=== PATIENT | female | born 1945 | race Caucasian/White ===

== ENCOUNTER 2017-05-09 09:28 | Outpatient (CLI) | payer MEDICARE ==
[2017-05-09 13:10] LABS: BASOPHILS % (AUTO) 0.8 %; EOSINOPHILS # (AUTO) 0.1 10^3/uL (0.0-0.7); HGB - HEMOGLOBIN 13.3 g/dL (12.0-16.0); LYMPHOCYTES # (AUTO) 1.1 10^3/uL (1.5-3.5); MONOCYTES # (AUTO) 0.4 10^3/uL (0.0-1.0); NEUTROPHILS # (AUTO) 3.5 10^3/uL (1.5-6.6); NUCLEATED RED BLOOD CELLS AUTO 0.1 /100WBC; RED CELL DISTRIBUTION WIDTH 12.8 % (12.0-15.0)
[2017-05-09 13:12] LABS: EOSINOPHILS % (AUTO) 1.6 %; HCT - HEMATOCRIT 40.5 % (37.0-47.0); MEAN CORPUSCULAR HEMOGLOBIN 29.2 pg (27.0-31.0); MEAN CORPUSCULAR HGB CONC 32.9 g/dL (32.0-36.0); MEAN CORPUSCULAR VOLUME 88.7 fL (81.0-99.0); MEAN PLATELET VOLUME 8.3 fL (7.9-10.8); MONOCYTES % (AUTO) 8.2 %; NEUTROPHILS % (AUTO) 68.4 %; RED BLOOD COUNT 4.57 10^6/uL (4.20-5.40); UNCORRECTED WHITE BLOOD COUNT 5.2 x10^3/uL; WHITE BLOOD COUNT 5.2 x10^3/uL (4.8-10.8)
[2017-05-09 13:41] LABS: BILIRUBIN,TOTAL 0.4 mg/dL (0.2-1.0); BUN - BLOOD UREA NITROGEN 13 mg/dL (6-20); CALCIUM 9.2 mg/dL (8.5-10.3); CARBON DIOXIDE - CO2 30 mmol/L (21-32); CHLORIDE 103 mmol/L (101-111); CHOLESTEROL 194 mg/dL; CREATININE 0.8 mg/dL (0.4-1.0); GFR - MDRD 70 (>89); GLUCOSE 101 mg/dL (70-100); HDL CHOLESTEROL 49 mg/dL; LDL/HDL RATIO 2.4 (<4.4); POTASSIUM 4.2 mmol/L (3.5-5.0); SODIUM 138 mmol/L (135-145); TOTAL PROTEIN 7.1 g/dL (6.7-8.2); TRIGLYCERIDES 143 mg/dL; VLDL CHOLESTEROL 29 mg/dL
== END 2017-05-09 09:29 | disposition home or self-care (01) ==
LOC: LAB.N 09:28
PROVIDERS: ATTEND Nurse Practitioner Gerontology
DX: I10 Essential (primary) hypertension (principal)
CPT/HCPCS: 36415; 80053; 80061; 85025

== ENCOUNTER 2018-03-27 13:28 | Outpatient (CLI) | payer MEDICARE ==
--- NOTE | 2018-03-27 17:24 | XRAY Report ---
THREE VIEW RIGHT KNEE: 03/27/2018 CLINICAL INDICATION: Pain. FINDINGS: AP, lateral, sunrise views of the right knee demonstrate mild osteoarthritis. There is no evidence of fracture. No effusion is seen. IMPRESSION: MILD OSTEOARTHRITIS. TD: 03/27/2018 15:46
== END 2018-03-27 13:29 | disposition home or self-care (01) ==
LOC: DI.N 13:28
PROVIDERS: ATTEND Family Medicine
DX: M17.11 Unilateral primary osteoarthritis, right knee (principal)

== ENCOUNTER 2018-04-15 08:47 | Outpatient (CLI) | payer MEDICARE ==
[2018-04-15 12:46] LABS: CALCIUM 9.5 mg/dL (8.5-10.3); CREATININE 0.8 mg/dL (0.4-1.0)
== END 2018-04-15 08:48 | disposition home or self-care (01) ==
LOC: LAB.N 08:47
PROVIDERS: ATTEND Family Medicine
DX: I10 Essential (primary) hypertension (principal)
CPT/HCPCS: 36415; 80048

== ENCOUNTER 2019-05-11 08:00 | Outpatient (CLI) | payer MEDICARE ==
[2019-05-11 19:08] LABS: CALCIUM 9.8 mg/dL (8.5-10.3); CREATININE 0.9 mg/dL (0.4-1.0)
== END 2019-05-11 23:59 | disposition home or self-care (01) ==
LOC: LAB.N 08:00
PROVIDERS: ATTEND Nurse Practitioner Gerontology
DX: I10 Essential (primary) hypertension (principal)
CPT/HCPCS: 36415; 80048

== ENCOUNTER 2020-11-15 08:00 | Outpatient (CLI) | payer MEDICARE ==
[2020-11-15 19:03] LABS: BASOPHILS % (AUTO) 0.7 %; EOSINOPHILS # (AUTO) 0.1 10^3/uL (0.0-0.7); HGB - HEMOGLOBIN 12.2 g/dL (12.0-16.0); LYMPHOCYTES # (AUTO) 1.5 10^3/uL (1.5-3.5); LYMPHOCYTES % (AUTO) 25.5 %; MEAN CORPUSCULAR HEMOGLOBIN 28.2 pg (27.0-31.0); MEAN CORPUSCULAR HGB CONC 29.5 g/dL (32.0-36.0); MEAN CORPUSCULAR VOLUME 95.8 fL (81.0-99.0); MEAN PLATELET VOLUME 10.4 fL (7.9-10.8); MONOCYTES # (AUTO) 0.5 10^3/uL (0.0-1.0); MONOCYTES % (AUTO) 7.9 %; NEUTROPHILS # (AUTO) 3.8 10^3/uL (1.5-6.6); NEUTROPHILS % (AUTO) 63.6 %; PLT - PLATELET COUNT 361 10^3/uL (130-450); RED BLOOD COUNT 4.32 10^6/uL (4.20-5.40); RED CELL DISTRIBUTION WIDTH 12.4 % (12.0-15.0)
[2020-11-15 19:18] LABS: ALBUMIN 3.8 g/dL (3.2-5.5); ALBUMIN/GLOBULIN RATIO 1.1 (1.0-2.2); BILIRUBIN,TOTAL 0.5 mg/dL (0.2-1.0); CALCIUM 9.5 mg/dL (8.5-10.3); TOTAL PROTEIN 7.3 g/dL (6.7-8.2)
== END 2020-11-15 23:59 | disposition home or self-care (01) ==
LOC: LAB.WCP 08:00
PROVIDERS: ATTEND Family Medicine
DX: I10 Essential (primary) hypertension (principal)
CPT/HCPCS: 36415; 80053; 85025

== ENCOUNTER 2021-10-30 08:00 | Outpatient (CLI) | payer MEDICARE ==
[2021-10-30 20:11] LABS: BASOPHILS % (AUTO) 0.2 %; EOSINOPHILS % (AUTO) 0.7 %; HCT - HEMATOCRIT 41.2 % (37.0-47.0); HGB - HEMOGLOBIN 13.2 g/dL (12.0-16.0); LYMPHOCYTES # (AUTO) 1.3 10^3/uL (1.5-3.5); LYMPHOCYTES % (AUTO) 31.1 %; MEAN CORPUSCULAR HEMOGLOBIN 28.8 pg (27.0-31.0); MEAN PLATELET VOLUME 10.1 fL (7.9-10.8); MONOCYTES # (AUTO) 0.5 10^3/uL (0.0-1.0); MONOCYTES % (AUTO) 12.5 %; NEUTROPHILS # (AUTO) 2.3 10^3/uL (1.5-6.6); NEUTROPHILS % (AUTO) 55.3 %; PLT - PLATELET COUNT 278 10^3/uL (130-450); RED BLOOD COUNT 4.58 10^6/uL (4.20-5.40); WHITE BLOOD COUNT 4.2 x10^3/uL (4.8-10.8)
[2021-10-30 20:28] LABS: ALBUMIN/GLOBULIN RATIO 1.3 (1.0-2.2); ALKALINE PHOSPHATASE 86 IU/L (42-121); ALT ALANINE AMINOTRANSFERASE 20 IU/L (10-60); AST ASPARTATE AMINOTRANSFERASE 29 IU/L (10-42); BILIRUBIN,TOTAL 0.3 mg/dL (0.2-1.0); BUN - BLOOD UREA NITROGEN 33 mg/dL (6-20); CALCIUM 9.9 mg/dL (8.5-10.3); CARBON DIOXIDE - CO2 30 mmol/L (21-32); CHLORIDE 94 mmol/L (101-111); CHOL/HDL RATIO 3.8 (<4.4); CHOLESTEROL 167 mg/dL; CREATININE 1.3 mg/dL (0.4-1.0); GFR - MDRD 40 (>89); GLUCOSE 115 mg/dL (70-100); HDL CHOLESTEROL 44 mg/dL; LDL CHOLESTEROL,CALCULATED 102 mg/dL; LDL/HDL RATIO 2.3 (<4.4); POTASSIUM 3.6 mmol/L (3.5-5.0); SODIUM 136 mmol/L (135-145); TOTAL PROTEIN 7.1 g/dL (6.7-8.2); TRIGLYCERIDES 106 mg/dL; VLDL CHOLESTEROL 21 mg/dL
[2021-10-30 20:41] LABS: ESTIMATED AVERAGE GLUCOSE 117 mg/dL (70-100); HEMOGLOBIN A1c% 5.7 % (4.27-6.07)
[2021-10-30 20:54] LABS: THYROID STIMULATING HORMONE 3.46 uIU/mL (0.34-5.60)
[2021-10-30 20:55] LABS: FREE T4 (FREE THYROXINE) 1.24 ng/dL (0.58-1.64)
== END 2021-10-30 23:59 | disposition home or self-care (01) ==
LOC: LAB.WCP 08:00
PROVIDERS: ATTEND Nurse Practitioner
DX: R53.83 Other fatigue (principal); Z13.220 Encounter for screening for lipoid disorders; E66.01 Morbid (severe) obesity due to excess calories
CPT/HCPCS: 36415; 80053; 80061; 82043; 82570; 83036; 83721; 84439; 84443; 85025

== ENCOUNTER 2021-11-02 11:00 | Outpatient (CLI) | payer MEDICARE ==
[2021-11-02 19:04] LABS: MICROALBUM/CREATININE RATIO,UR 6.6 ug/mg (<30.0); MICROALBUMIN,URINE 0.4 mg/dL (0-300.0)
== END 2021-11-02 23:59 | disposition home or self-care (01) ==
LOC: LAB.N 11:00
PROVIDERS: ATTEND Nurse Practitioner
DX: E66.01 Morbid (severe) obesity due to excess calories (principal)
CPT/HCPCS: 82043; 82570

== ENCOUNTER 2022-10-09 14:46 | Outpatient (CLI) | payer MEDICARE ==
--- NOTE | 2022-10-09 14:59 | XRAY Report ---
PROCEDURE: Knee 4 View BILAT INDICATIONS: BILAT KNEE PAIN TECHNIQUE: 4 views of the bilateral knee(s) were acquired. COMPARISON: None. FINDINGS: Bones: No fractures or dislocations. No suspicious bony lesions. Moderate periareolar articular os teophyte formation bilaterally. Severe right knee lateral compartment narrowing. Mild left knee later al compartment narrowing. Soft tissues: No joint effusion. No suspicious soft tissue calcifications. IMPRESSION: Osteoarthritis with knee joint narrowing. No acute fracture. No osseous lesion. If sympt oms and/or clinical suspicion for pathology continue, further assessment with repeat plain films, or advanced imaging (e.g., CT, MRI, or bone scan) is recommended for further assessment. Reviewed by: Danya Phan MD on 10/09/2022 1:58 PM [facility] [[email or web address]] Approved by: Danya Phan MD on 10/09/2022 1:58 PM [facility] [[email or web address]] Station ID: [id number]
== END 2022-10-09 14:47 | disposition home or self-care (01) ==
LOC: DI.WOS 14:46
PROVIDERS: ATTEND Physician Assistant Surgical
DX: M17.0 Bilateral primary osteoarthritis of knee (principal)

== ENCOUNTER 2022-12-22 12:16 | Outpatient (CLI) | payer MEDICARE ==
[2022-12-22 18:56] LABS: BASOPHILS % (AUTO) 0.5 %; EOSINOPHILS # (AUTO) 0.2 10^3/uL (0.0-0.7); EOSINOPHILS % (AUTO) 2.3 %; HCT - HEMATOCRIT 40.2 % (37.0-47.0); HGB - HEMOGLOBIN 12.1 g/dL (12.0-16.0); LYMPHOCYTES # (AUTO) 2.3 10^3/uL (1.5-3.5); LYMPHOCYTES % (AUTO) 28.8 %; MEAN CORPUSCULAR HEMOGLOBIN 28.8 pg (27.0-31.0); MEAN CORPUSCULAR HGB CONC 30.1 g/dL (32.0-36.0); MEAN CORPUSCULAR VOLUME 95.7 fL (81.0-99.0); MEAN PLATELET VOLUME 10.6 fL (7.9-10.8); MONOCYTES # (AUTO) 0.5 10^3/uL (0.0-1.0); MONOCYTES % (AUTO) 6.5 %; NEUTROPHILS # (AUTO) 4.9 10^3/uL (1.5-6.6); NEUTROPHILS % (AUTO) 61.8 %; PLT - PLATELET COUNT 315 10^3/uL (130-450); RED CELL DISTRIBUTION WIDTH 12.8 % (12.0-15.0)
[2022-12-22 19:16] LABS: ALBUMIN 4.1 g/dL (3.2-5.5); ALBUMIN/GLOBULIN RATIO 1.1 (1.0-2.2); ALKALINE PHOSPHATASE 79 IU/L (42-121); ALT ALANINE AMINOTRANSFERASE 12 IU/L (10-60); AST ASPARTATE AMINOTRANSFERASE 18 IU/L (10-42); BILIRUBIN,TOTAL 0.8 mg/dL (0.2-1.0); BUN - BLOOD UREA NITROGEN 37 mg/dL (6-20); CALCIUM 10.1 mg/dL (8.5-10.3); CARBON DIOXIDE - CO2 24 mmol/L (21-32); CHLORIDE 97 mmol/L (101-111); CHOL/HDL RATIO 3.2 (<4.4); CHOLESTEROL 171 mg/dL; CREATININE 1.3 mg/dL (0.4-1.0); GFR - MDRD 40 (>89); GLUCOSE 102 mg/dL (70-100); HDL CHOLESTEROL 54 mg/dL; LDL CHOLESTEROL,CALCULATED 99 mg/dL; LDL/HDL RATIO 1.8 (<4.4); POTASSIUM 3.7 mmol/L (3.5-5.0); SODIUM 135 mmol/L (135-145); TRIGLYCERIDES 92 mg/dL; VLDL CHOLESTEROL 18 mg/dL
[2022-12-22 19:27] LABS: THYROID STIMULATING HORMONE 2.68 uIU/mL (0.34-5.60)
[2022-12-22 21:39] LABS: ESTIMATED AVERAGE GLUCOSE 117 mg/dL (70-100); HEMOGLOBIN A1c% 5.7 % (4.27-6.07)
== END 2022-12-22 12:17 | disposition home or self-care (01) ==
LOC: LAB.N 12:16
PROVIDERS: ATTEND Physician Assistant
DX: I12.9 Hypertensive chronic kidney disease with stage 1 through stage 4 chronic kidney disease, or unspecified chronic kidney disease (principal); N18.32 Chronic kidney disease, stage 3b; R73.03 Prediabetes; R53.83 Other fatigue
CPT/HCPCS: 36415; 80053; 80061; 83036; 83721; 84443; 85025

== ENCOUNTER 2023-10-23 08:30 | Outpatient (CLI) | payer MEDICARE ==
[2023-10-23 11:59] LABS: BILIRUBIN,URINE NEGATIVE (NEGATIVE); GLUCOSE, URINE (UA) NEGATIVE (NEGATIVE); KETONES,URINE (UA) NEGATIVE (NEGATIVE); LEUKOCYTE ESTERASE, URINE TRACE (NEGATIVE); NITRITE,URINE POSITIVE (NEGATIVE); OCCULT BLOOD,URINE NEGATIVE (NEGATIVE); PROTEIN,URINE NEGATIVE (NEGATIVE); UROBILINOGEN,URINE 0.2 (NORMAL) E.U./dL (NORMAL)
[2023-10-23 12:09] LABS: BACTERIA,URINE Moderate /HPF (None Seen); CLARITY,URINE HAZY (CLEAR); RBC,URINE None Seen /HPF (0-5); SQUAMOUS EPITHELIAL CELL,UR MOD Squamous (<= Few)
== END 2023-10-23 08:45 | disposition home or self-care (01) ==
LOC: LAB.N 08:30
PROVIDERS: ATTEND Nurse Practitioner
DX: R30.0 Dysuria (principal)
CPT/HCPCS: 81001; 87086

== ENCOUNTER 2023-11-04 08:00 | Outpatient (CLI) | payer MEDICARE ==
[2023-11-04 18:05] LABS: BILIRUBIN,URINE NEGATIVE (NEGATIVE); GLUCOSE, URINE (UA) NEGATIVE (NEGATIVE); KETONES,URINE (UA) NEGATIVE (NEGATIVE); LEUKOCYTE ESTERASE, URINE TRACE (NEGATIVE); NITRITE,URINE NEGATIVE (NEGATIVE); OCCULT BLOOD,URINE NEGATIVE (NEGATIVE); PROTEIN,URINE NEGATIVE (NEGATIVE); UROBILINOGEN,URINE 0.2 (NORMAL) E.U./dL (NORMAL)
[2023-11-04 18:12] LABS: BACTERIA,URINE Few /HPF (None Seen); CLARITY,URINE CLEAR (CLEAR); MUCUS,URINE Few Strands; RBC,URINE 0-5 /HPF (0-5); SQUAMOUS EPITHELIAL CELL,UR MOD Squamous (<= Few); WBC,URINE 0-3 /HPF (0-5)
== END 2023-11-04 23:59 | disposition home or self-care (01) ==
LOC: LAB.N 08:00
PROVIDERS: ATTEND Nurse Practitioner
DX: R30.0 Dysuria (principal)
CPT/HCPCS: 81001; 87086

== ENCOUNTER 2023-11-25 08:00 | Outpatient (CLI) | payer MEDICARE ==
--- NOTE | 2023-11-25 14:06 | XRAY Report ---
PROCEDURE: Knee 4 View RT INDICATIONS: RIGHT KNEE PAIN TECHNIQUE: 4 views of the right knee(s) were acquired. COMPARISON: 10/09/2022. FINDINGS: Bones: No fractures or dislocations. No suspicious bony lesions. Progressive, advanced degenerati ve arthritis of the right knee with tricompartment osteophytes and lateral compartment joint space ob literation. Limited imaging of the left knee demonstrates total left knee arthroplasty without eviden ce of hardware failure or loosening. Soft tissues: No knee joint effusion. No suspicious soft tissue calcifications or masses. IMPRESSION: Progressive, advanced degenerative arthritis of the right knee. Reviewed by: Julio Cesar Major MD on 11/25/2023 2:05 PM PST Approved by: Julio Cesar Major MD on 11/25/2023 2:05 PM PST Station ID: [id number]
== END 2023-11-25 23:59 | disposition home or self-care (01) ==
LOC: DI.WOS 08:00
PROVIDERS: ATTEND Physician Assistant Surgical
DX: M17.11 Unilateral primary osteoarthritis, right knee (principal)

== ENCOUNTER 2024-06-02 13:37 | Outpatient (CLI) | payer MEDICARE ==
[2024-06-02 19:17] LABS: BASOPHILS # (AUTO) 0.1 10^3/uL (0.0-0.1); BASOPHILS % (AUTO) 0.8 %; EOSINOPHILS # (AUTO) 0.3 10^3/uL (0.0-0.7); EOSINOPHILS % (AUTO) 3.6 %; HCT - HEMATOCRIT 36.1 % (37.0-47.0); HGB - HEMOGLOBIN 11.4 g/dL (12.0-16.0); LYMPHOCYTES # (AUTO) 1.7 10^3/uL (1.5-3.5); LYMPHOCYTES % (AUTO) 19.8 %; MEAN CORPUSCULAR HGB CONC 31.6 g/dL (32.0-36.0); MEAN CORPUSCULAR VOLUME 91.9 fL (81.0-99.0); MEAN PLATELET VOLUME 9.9 fL (7.9-10.8); MONOCYTES # (AUTO) 0.8 10^3/uL (0.0-1.0); MONOCYTES % (AUTO) 9.1 %; NEUTROPHILS # (AUTO) 5.8 10^3/uL (1.5-6.6); NEUTROPHILS % (AUTO) 66.6 %; PLT - PLATELET COUNT 374 10^3/uL (130-450); RED BLOOD COUNT 3.93 10^6/uL (4.20-5.40); RED CELL DISTRIBUTION WIDTH 12.2 % (12.0-15.0); WHITE BLOOD COUNT 8.8 x10^3/uL (4.8-10.8)
[2024-06-02 19:33] LABS: ALBUMIN 4.3 g/dL (3.2-5.5); ALBUMIN/GLOBULIN RATIO 1.3 (1.0-2.2); BILIRUBIN,TOTAL 0.4 mg/dL (0.2-1.0); CALCIUM 10.5 mg/dL (8.5-10.3); CREATININE 1.1 mg/dL (0.6-1.3); POTASSIUM 4.2 mmol/L (3.5-4.5); TOTAL PROTEIN 7.5 g/dL (6.4-8.9)
[2024-06-02 19:54] LABS: THYROID STIMULATING HORMONE 3.37 uIU/mL (0.34-5.60)
== END 2024-06-02 13:38 | disposition home or self-care (01) ==
LOC: LAB.N 13:37
PROVIDERS: ATTEND Nurse Practitioner
DX: I10 Essential (primary) hypertension (principal); F32.A Depression, unspecified
CPT/HCPCS: 36415; 80053; 84443; 85025

== ENCOUNTER 2024-07-24 14:47 | Outpatient (CLI) | payer MEDICARE ==
--- NOTE | 2024-07-25 00:16 | XRAY Report ---
PROCEDURE: Knee 4+V BL INDICATIONS: KNEE JOINT PAIN >3 MONTHS, BILATERAL TECHNIQUE: 6 views of the knee was obtained. COMPARISON: 11/25/2023 FINDINGS: Bones: On left, total knee arthroplasty in good position. No evidence of hardware failure or looseni ng. On the right, severe lateral compartmental joint space narrowing with marginal osteophyte. Modera te medial compartment joint space narrowing Soft tissues: No knee joint effusion. No suspicious soft tissue calcifications or masses. IMPRESSION: Moderate to severe right knee osteoarthritis. Total left knee prosthesis in good position. No hardware loosening or failure Reviewed by: Real Nielson MD on 07/24/2024 11:15 PM [email or web address] Approved by: Real Nielson MD on 07/24/2024 11:15 PM [facility] Station ID: [id number]
== END 2024-07-24 14:48 | disposition home or self-care (01) ==
LOC: DI.N 14:47
PROVIDERS: ATTEND Nurse Practitioner
DX: M17.11 Unilateral primary osteoarthritis, right knee (principal); M25.562 Pain in left knee; Z96.652 Presence of left artificial knee joint

== ENCOUNTER 2025-06-13 06:41 | Inpatient (IN) ==
--- NOTE | 2025-06-13 07:04 | ED Physician Documentation ---
History of Present Illness Stated complaint Stated Complaint: GLF, LEFT ANKLE INJURY Chief complaint Chief Complaint: Trauma Ext Additonal information Additional information: 79-year-old female withPast medical significant for prediabetes, degenerative disc disease, osteoporosis presents status post fall. Reports tripped over her feet and fell earlier today. Was found by EMS to have hypoxic respiratory failure with oxygen saturations in the 60s. No new oxygen demand. Denies chest pain, shortness of breath, head strike, use blood thinning medications. Clemmons Coma Scale Assess Eye opening: Spontaneous Verbal response: Confused Motor response: Obeys Commands Total score: 14 Review of Systems Status of ROS: 10 or more systems reviewed and unremarkable except as noted in history and below Cardiovascular Denies: shortness of breath with exertion Respiratory Denies: Shortness of breath Gastrointestinal Denies: Abdominal pain Genitourinary Denies: Painful urination Musculoskeletal Denies: Back pain Integumentary/Breast Denies: Rash Neurological Denies: Headache Psychiatric Denies: Depression Endocrine Denies: Excessive urination Hematologic/Lymphatic Denies: Anemia Allergic/Immunologic Denies: Hives Meds/Allgy Home Medications Ambulatory Orders Medication Instructions Recorded Confirmed losartan 100 mg tablet 100 mg PO QDAY hypertension #90 04/12/25 06/13/25 tabs albuterol sulfate 90 mcg/actuation 2 puff inhalation Q ID PRN 05/05/25 06/13/25 aerosol inhaler (Ventolin HFA) shortness of breath or wheezing #8.5 grams alendronate 70 mg tablet 70 mg PO QWEEK #13 tabs 04/2706/13/25 lidocaine 5 % topical patch 1 patch topical BID Pain # 60 ea 05/13/25 06/13/25 duloxetine 30 mg capsule,delayed 30 mg PO QDAY depress ion #30 caps 05/31/25 06/13/25 release naproxen 500 mg tablet 500 mg PO BID #60 tabs 05/3106/13/25 Allergies Allergies Allergy/AdvReac Type Severity Reaction Status Date / Time lisinopril Allergy Severe Cough Verified 06/13/25 07:03 oxycodone (From Percocet) Allergy Severe Emesis Verified 06/13/25 07:03 PFS Active Problems All Active Problems (Updated 06/13/25 @ 14:33 by Barbara Irving MD) Urinary tract infection (Acute) Bimalleolar ankle fracture (Acute) Respiratory failure with hypoxia (Acute) Osteoporosis (Chronic) Thoracolumbar back pain (Chronic) Iron deficiency (Chronic) Vitamin B12 deficiency (Chronic) Degenerative joint disease of knee, right (Chronic) Postmenopausal (Chronic) DDD (degenerative disc disease), lumbar (Chronic) Chronic left hip pain (Chronic) History of knee replacement (Chronic) Financial insecurity (Chronic) Prediabetes (Chronic) Localized edema (Chronic) Fatigue (Chronic) Dysuria (Chronic) Chronic kidney disease, stage 3b (Chronic) Knee joint pain (Chronic) Degenerative joint disease of knee, left (Chronic) Benign essential hypertension (Chronic) Macular degeneration (Chronic) Migraine headache with aura (Chronic) Depression (Chronic) Morbid obesity (Chronic) Anemia, unspecified (Chronic) Social History Social History Smoking Status: Former smoker If you are a former smoker, when did you quit? (Date/Year): 2010 Number of Years Smoked: 40 Second hand tobacco smoke exposure: Yes Do you dip or chew tobacco?: No Do you vape?: No Living arrangement: At home and Assisted living Living Condition: With caregiver(s) More Information: Patient currently lives at [facility] Support Person: Yes Relationship: Physical Activity: None Level: Dependent Home Mobility Equipment: Walker Do you feel safe in your home environment?: Yes Suffered physical, verbal, emotional, or financial abuse?: No History of Abuse: No ETOH Use: None Frequency: Occasional Substance Use: denies use POLST Patient has POLST: No Exam Exam Vital Signs: Vital Signs x48h Temp Pulse Resp BP Pulse Ox O2 Flow Rate 06/13/25 11:13 88 20 191/107 H 92 4 06/13/25 09:25 88 18 2 06/13/25 08:03 79 16 95 4 06/13/25 07:04 2 06/13/25 06:59 80 18 193/98 H 94 06/13/25 06:59 83 20 193/98 H 98 2 06/13/25 06:41 4 06/13/25 06:41 36.7 C 87 24 159/106 H 71 L Constitutional normal general appearance and no apparent distress Obese body habitus HENMT normocephalic Eyes PERRL Neck/C-Spine visual inspection normal Lymph no lymphadenopathy noted Chest inspection of chest normal and palpation of chest normal Respiratory breath sounds equal bilaterally and normal respiratory effort Cardiovascular normal heart rate noted Gastrointestinal abdomen normal to inspection Genitourinary no CVA tenderness Back/Pelvis spine normal to inspection Extremities Left lower ankle with external rotation, swelling, normal DP and PT pulses. Normal sensation in distal dermatomes. Neurology therapist radiation II-XII intact, no movement abnormality noted, no focal motor deficit noted and no sensory deficits noted Results Vitals Vitals: Vital Signs - 24 hr 06/13/25 06:59 06/13/25 06:59 06/13/25 06:59 Pulse Rate 83 80 Respiratory Rate 20 18 Blood Pressure 193/98 H 193/98 H O2 Saturation 98 94 Oxygen Delivery Method Nasal Cannula O2 Source Nasal cannula Nasal cannula Oxygen Flow Rate 2 If not protocol: Oxygen Flow, liters/minute 2 Pain Intensity 8 4 06/13/25 07:04 06/13/25 08:03 06/13/25 09:25 Pulse Rate 79 88 Respiratory Rate 16 18 Blood Pressure O2 Saturation 95 Oxygen Delivery Method Nasal Cannula O2 Source Nasal cannula Nasal cannula Oxygen Flow Rate If not protocol: Oxygen Flow, liters/minute 2 4 2 Pain Intensity 06/13/25 11:13 Pulse Rate 88 Respiratory Rate 20 Blood Pressure 191/107 H O2 Saturation 92 Oxygen Delivery Method O2 Source Nasal cannula Oxygen Flow Rate If not protocol: Oxygen Flow, liters/minute 4 Pain Intensity Oxygen O2 Source Nasal cannula Oxygen Flow Rate 2 EKG (time done) 0709: EKG releavant findings:: EKG personally interpreted by author of this note. Relevant findings are: Sinus rhythm with rate 81 bpm. Normal axis. Normal NH, QRS, QTc intervals. Isolated ST segment elevations in V2. No reciprocal changes. No STEMI. 1057: EKG releavant findings:: EKG personally interpreted by author of this note. Relevant findings are: Sinus rhythm with rate 86 bpm. Normal axis. Parable prolonged at [address] segment elevation in V2. No STEMI. Labs Labs: Laboratory Tests 06/13/25 06/13/25 06/13/25 07:08 07:58 08:08 WBC 9.2 RBC 4.53 Hgb 13.0 Hct 43.4 MCV 95.8 MCH 28.7 MCHC 30.0 L RDW 13.2 Plt Count 358 MPV 9.6 Neut # (Auto) 7.7 H Lymph # (Auto) 0.6 L Mcdonald # (Auto) 0.8 Eos # (Auto) 0.0 Baso # (Auto) 0.0 Absolute Nucleated RBC 0.04 Nucleated RBC % 0.4 VBG pH 7.310 VBG pCO2 65.9 H VBG pO2 73.0 H VBG HCO3 33.5 H VBG Total CO2 35.5 H VBG O2 Saturation 90.0 H VBG Base Excess 7.0 H Sodium 139 Potassium 4.4 Chloride 101 Carbon Dioxide 33 H Anion Gap 5.0 L BUN 40 H Creatinine 1.4 H Estimated GFR (MDRD) 36 L Glucose 104 Lactic Acid 1.1 Calcium 10.4 H Total Bilirubin 0.5 AST 18 ALT 18 Alkaline Phosphatase 114 Troponin I High Sens 76.3 H* B-Natriuretic Peptide 682 H Total Protein 7.8 Albumin 4.2 Globulin 3.6 Albumin/Globulin Ratio 1.2 Urine Color YELLOW Urine Clarity HAZY Urine pH 6.0 Ur Specific Rembert 1.025 Urine Protein 30 H Urine Glucose (UA) NEGATIVE Urine Ketones 15 H Urine Occult Blood NEGATIVE Urine Nitrite POSITIVE H Urine Bilirubin NEGATIVE Urine Urobilinogen 0.2 (NORMAL) Ur Leukocyte Esterase TRACE H Urine RBC None Seen Urine WBC >25 H Ur Squamous Epith Cells FEW Squamous Urine Bacteria Many H Urine Casts 0-2 Hyaline Casts Urine Mucus Few Strands Ur Microscopic Review INDICATED Urine Culture Comments INDICATED Nasal Adenovirus (PCR) NOT DETECTED Nasal B. parapertussis DNA (PCR) NOT DETECTED Nasal Coronavir 229E PCR NOT DETECTED Nasal Coronavir HKU1 PCR NOT DETECTED Nasal Coronavir NL63 PCR NOT DETECTED Nasal Coronavir OC43 PCR NOT DETECTED Nasal Enterovir/Rhinovir PCR NOT DETECTED Nasal Influenza B PCR NOT DETECTED Nasal Influenza A PCR NOT DETECTED Nasal Parainfluen 1 PCR NOT DETECTED Nasal Parainfluen 2 PCR NOT DETECTED Nasal Parainfluen 3 PCR NOT DETECTED Nasal Parainfluen 4 PCR NOT DETECTED Nasal RSV (PCR) NOT DETECTED Nasal B.pertussis DNA PCR NOT DETECTED Nasal C.pneumoniae (PCR) NOT DETECTED Miguel Human Metapneumo PCR NOT DETECTED Nasal M.pneumoniae (PCR) NOT DETECTED Nasal SARS-CoV-2 (PCR) NOT DETECTED 06/13/25 09:19 WBC RBC Hgb Hct MCV MCH MCHC RDW Plt Count MPV Neut # (Auto) Lymph # (Auto) Mcdonald # (Auto) Eos # (Auto) Baso # (Auto) Absolute Nucleated RBC Nucleated RBC % VBG pH VBG pCO2 VBG pO2 VBG HCO3 VBG Total CO2 VBG O2 Saturation VBG Base Excess Sodium Potassium Chloride Carbon Dioxide Anion Gap BUN Creatinine Estimated GFR (MDRD) Glucose Lactic Acid Calcium Total Bilirubin AST ALT Alkaline Phosphatase Troponin I High Sens 66.2 H* B-Natriuretic Peptide Total Protein Albumin Globulin Albumin/Globulin Ratio Urine Color Urine Clarity Urine pH Ur Specific Rembert Urine Protein Urine Glucose (UA) Urine Ketones Urine Occult Blood Urine Nitrite Urine Bilirubin Urine Urobilinogen Ur Leukocyte Esterase Urine RBC Urine WBC Ur Squamous Epith Cells Urine Bacteria Urine Casts Urine Mucus Ur Microscopic Review Urine Culture Comments Nasal Adenovirus (PCR) Nasal B. parapertussis DNA (PCR) Nasal Coronavir 229E PCR Nasal Coronavir HKU1 PCR Nasal Coronavir NL63 PCR Nasal Coronavir OC43 PCR Nasal Enterovir/Rhinovir PCR Nasal Influenza B PCR Nasal Influenza A PCR Nasal Parainfluen 1 PCR Nasal Parainfluen 2 PCR Nasal Parainfluen 3 PCR Nasal Parainfluen 4 PCR Nasal RSV (PCR) Nasal B.pertussis DNA PCR Nasal C.pneumoniae (PCR) Miguel Human Metapneumo PCR Nasal M.pneumoniae (PCR) Nasal SARS-CoV-2 (PCR) PD Medical Decision Making ED course ED course: 79-year-old female presents chief complaint fall and hypoxic respiratory failure. Reports ground-level fall. States twisted left ankle. Denies striking head, losing consciousness and no reported use of blood thinners. Found to be hypoxic per EMS. Started on 4 L via oxime mask prior to arrival. On arrival here patient denies acute complaints with the exception of ankle pain. Does not endorse for any headache, blurred vision, chest pain, shortness of breath. Does appear that she regularly uses albuterol at home. Serial EKGs demonstrate an isolated elevation in V2 but no STEMI criteria or other indications acute cardiac ischemia or dysrhythmia. She does have a mild elevation in high-sensitivity troponin which down trended on repeat. Additionally she has a mild elevation in beta natruretic peptide. She is given breathing treatment, steroids here. Did obtain CT angiography which demonstrates chronic elevation of the right hemidiaphragm, right sided p leural effusion but no PE, pneumothorax, hemothorax or injury to the great vessels of the chest. X-ray does confirm bimalleolar fracture. She is splinted in posterior short with stirrup. Urine analysis positive for indications of infection. Given gram Rocephin. Urine culture pending. Her care is discussed with orthopedic surgery who are amenable to seeing her inpatient. I have discussed her care with hospital service who graciously agrees to hospitalize for further evaluation and treatment. Discharge Plan Discharge Patient Disposition: 66 [facility] DC/Xfer Clinical Impression: Respiratory failure with hypoxia Qualifiers: Chronicity: acute Qualified Code(s): J96.01 - Acute respiratory failure with hypoxia Bimalleolar ankle fracture Qualifiers: Encounter type: initial encounter Fracture type: closed Laterality: left Qualified Code(s): S82.842A - Displaced bimalleolar fracture of left lower leg, initial encounter for closed fracture Urinary tract infection Qualifiers: Urinary tract infection type: acute cystitis Hematuria presence: without hematuria Qualified Code(s): N30.00 - Acute cystitis without hematuria Interventions: ED Admission Assessment Last Done: 06/13/25 14:21 Vitals documented within 30 minutes of discharge?: Yes
--- OUTSIDE RECORDS SUMMARY | 2025-06-13 07:39 | EXTERNAL MEDICAL SUMMARY RPT | Continuity of Care Document ---
Author Organization [place] Address [address] [address] [place] [address] Phone Problems date description facility 2025-03-26 11:11 Other [facility] 2025-03-26 11:11 Pain in right [facility] 2025-03-26 11:11 Other intervertebral disc degeneration, lumbar region without mention of lumbar back pain or lower extremity pain [facility]25-05-07 00:01 Essential (primary) hypertensio n [facility] 2025-05-07 00:01 Low back pain, unspecified [facility] 2025-05-07 00:01 Pain in thoracic spine [facility] 2025-05-07 00:01 Age-related osteopor osis without current pathological fracture [facility] 2025-05-07 00:01 Chronic kidney disease, stage 3 b [facility] 2025-05-07 00:01 Other specified abnormal findin gs of blood chemistry [facility] 2025-05-07 00:01 Fracture of one rib, unspecified side, initial encounter for closed fracture [facility] 2025-05-24 11:43 Essential (primary) hypertensio n [facility] 2025-05-24 11:43 Low back pain, unspecified [facility] 2025-05-24 11:43 Pain in thoracic spine [facility] 2025-05-24 11:43 Age-related osteopor osis without current pathological fracture [facility] 2025-05-24 11:43 Chronic kidney disease, stage 3 b [facility] 2025-05-24 11:43 Other specified abnormal findin gs of blood chemistry [facility] 2025-05-24 11:43 Fracture of one rib, unspecified side, initial encounter for closed fracture [facility] Social History date description facility
[2025-06-13 08:03] LABS: B. PARAPERTUSSIS- RESP PCR PAN NOT DETECTED; B. PERTUSSIS- RESP PCR PANEL NOT DETECTED; C. PNEUMONIAE- RESP PCR PANEL NOT DETECTED; CORONAVIRUS 229E-RESP PCR NOT DETECTED; CORONAVIRUS HKU1-RESP PCR NOT DETECTED; CORONAVIRUS NL63-RESP PCR NOT DETECTED; CORONAVIRUS OC43-RESP PCR NOT DETECTED; HUMAN METAPNEUMOVIRUS NOT DETECTED; INFLUENZA A- RESP PCR PANEL NOT DETECTED; INFLUENZA B - RESP PCR PANEL NOT DETECTED; M. PNEUMONIAE- RESP PCR PANEL NOT DETECTED; PARAINFLUENZA VIRUS 1 NOT DETECTED; PARAINFLUENZA VIRUS 2 NOT DETECTED; PARAINFLUENZA VIRUS 4 NOT DETECTED; RHINOVIRUS/ENTEROVIRUS NOT DETECTED; RSV- RESP PCR PANEL NOT DETECTED; SARS-CoV-2 -RESP PCR PANEL NOT DETECTED
--- NOTE | 2025-06-13 08:05 | XRAY Report ---
PROCEDURE: XR Ankle 3+V LT INDICATIONS: Trauma TECHNIQUE: 3 views of the ankle were acquired. COMPARISON: None. FINDINGS: Bones: Bimalleolar fractures with associated mild disruption of the ankle mortise. The medial malleolar fracture is displaced. The pattern of distal fibular fracture suggests probable associated syndesmotic injury. Soft tissues: Positive tibiotalar joint effusion. Achilles tendon appears normal. IMPRESSION: Bimalleolar fractures, mild disruption of the ankle mortise, likely associated syndesmotic injury. Reviewed by: Julio Cesar Major MD on 06/13/2025 8:04 AM PDT Approved by: Julio Cesar Major MD on 06/13/2025 8:04 AM PDT Station ID: [id number]
[2025-06-13 08:08] LABS: HCT - HEMATOCRIT 43.4 % (37.0-47.0); HGB - HEMOGLOBIN 13.0 g/dL (12.0-16.0); MEAN PLATELET VOLUME 9.6 fL (7.9-10.8); NRBC ABSOLUTE COUNT (AUTO) 0.04 x10^3/uL; NUCLEATED RED BLOOD CELLS AUTO 0.4 /100WBC; PLT - PLATELET COUNT 358 10^3/uL (130-450); RED CELL DISTRIBUTION WIDTH 13.2 % (12.0-15.0)
[2025-06-13 08:15] LABS: VBG BASE EXCESS 7.0 mmol/L (-2 - +2); VBG PCO2 65.9 mmHg (41-51); VBG PH 7.310 (7.31-7.41); VBG PO2 73.0 mmHg (25-47); VBG TOTAL CO2 35.5 mmol/L (24-29)
[2025-06-13 08:21] LABS: ALT ALANINE AMINOTRANSFERASE 18.0 IU/L (10-60); AST ASPARTATE AMINOTRANSFERASE 18.0 IU/L (10-42); BUN - BLOOD UREA NITROGEN 40.0 mg/dL (6-20); CARBON DIOXIDE - CO2 33.0 mmol/L (21-32); CREATININE 1.4 mg/dL (0.6-1.3); GFR - MDRD 36.0 (>89)
--- NOTE | 2025-06-13 08:33 | XRAY Report ---
PROCEDURE: XR Chest 1V INDICATIONS: chest pain TECHNIQUE: One view of the chest was acquired. COMPARISON: CT chest without contrast dated 03/11/2025. FINDINGS: Surgical changes and devices: None. Lungs and pleura: There is eventration of the right hemidiaphragm demonstrated on the previous CT. Acute interstitial pulmonary edema and probable right pleural fluid are present. Mediastinum: Mediastinal contours appear normal. Heart size is difficult to determine secondary to subjacent process and eventration of the right hemidiaphragm.. Bones and chest wall: No suspicious bony lesions. Overlying soft tissues appear unremarkable. IMPRESSION: Congestive heart failure. Reviewed by: Julio Cesar Major MD on 06/13/2025 8:32 AM PDT Approved by: Julio Cesar Major MD on 06/13/2025 8:32 AM PDT Station ID: [id number]
[2025-06-13 08:46] LABS: GLUCOSE, URINE (UA) NEGATIVE (NEGATIVE); KETONES,URINE (UA) 15 mg/dL (NEGATIVE); OCCULT BLOOD,URINE NEGATIVE (NEGATIVE)
[2025-06-13 08:47] LABS: CASTS, URINE 0-2 Hyaline Casts /LPF; SQUAMOUS EPITHELIAL CELL,UR FEW Squamous (<= Few)
[2025-06-13 09:03] LABS: TROPONIN I HIGH SENSITIVITY 76.3 ng/L (2.3-14.8)
[2025-06-13] MEDS: IPRATROPIUM/ALBUTEROL 3 ML NEB INH STA (09:25)
--- NOTE | 2025-06-13 09:28 | CT Report ---
PROCEDURE: CT Angio Chest INDICATIONS: Large pleural effusion, hypoxic respiratory failur CONTRAST: 80ml omni 300 TECHNIQUE: After the administration of intravenous contrast, 2 mm axial images were acquired from the pulmonary apices to the posterior costophrenic angles during the arterial phase. In addition, 1 mm lung kernel and 5 mm soft tissue kernel reconstructions were performed. 3-dimensional coronal oblique maximum intensity projection (MIP) reformats, 8 mm axial MIP, and 5 mm coronal and sagittal MPR reformats were then performed through the thorax. For radiation dose reduction, the following was used: automated exposure control, adjustment of mA and/or kV according to patient size. COMPARISON: Chest film from today, CT chest without contrast dated 03/11/2025.. FINDINGS: Image quality: Excellent. Large vessels: No filling defects within the opacified pulmonary arteries, accounting for motion and contrast timing. No evidence of acute aortic syndrome or aortic aneurysm. Lungs and pleura: Marked elevation of the right hemidiaphragm. There is a relatively small right pleural effusion, and there is subtotal collapse of the right lower lobe. There is no pulmonary edema, as was suggested on the chest film. Mediastinum: Heart size is normal. No pericardial effusion. No large vessel abnormality. No mediastinal adenopathy by size criteria. Chest wall and lower neck: Thyroid is unremarkable. No axillary or supraclavicular adenopathy by size. Bones: Numerous incompletely healed left rib fractures are identified. Bridging callus is not present. Upper Abdomen: Unremarkable. IMPRESSION: 1. No acute pulmonary emboli. 2. Marked chronic elevation of the right hemidiaphragm. 3. Relatively small superimposed right pleural effusion. 4. Subtotal collapse of the right lower lobe. 5. No pulmonary edema. 6. Numerous healing left rib fractures Reviewed by: Julio Cesar Major MD on 06/13/2025 9:27 AM PDT Approved by: Julio Cesar Major MD on 06/13/2025 9:27 AM PDT Station ID: [id number]
[2025-06-13] MEDS: cefTRIAXone 1 GM VIAL IVP STA (09:56)
[2025-06-13] MEDS: methylPREDNISolone SUCCINATE 125 MG/2 ML VIAL IVP STA (11:04)
--- NOTE | 2025-06-13 14:00 | HISTORY & PHYSICAL EXAMINATION ---
Chief Complaint Chief Complaint Chief Complaint: Fall History of Present Illness Admitted From Admitted From:: Home History Obtained From Records Reviewed: EMR History obtained from: Patient Exam Limitations: None History of Present Illness HPI Comment/Other: Patient is a 79-year-old female with a history of hypertension, degenerative disc disease who presents after mechanical fall. She states she was turning, and tripped and fell on her left side on her ankle. She recently moved out from her grand kids house, and is living alone. She denies any dizziness, lightheadedness, palpitations, chest pain prior to the fall. In the ER, she was saturating 71% on room air. Her respiratory rate was 24. Her heart rate was 87, she was afebrile, and hypertensive. She was placed on 2 to 3 L of oxygen with improvement of her levels to 94 to 95%. Ankle x-ray showed bimalleolar fractures with mild disruption of the ankle more T's. Chest x-ray was completed, as well as a CTA which showed no PE, chronic elevation of the right hemidiaphragm with small superimposed right pleural effusion as well as subtotal collapse of the right lower lobe. No pulmonary edema was seen and she had numerous healing left rib fractures. She does not recall getting any of those rib fractures. Lab work was largely unremarkable. VBG showed some CO2 retention with a pH of 7.3 and CO2 of 65.9. Her creatinine was mildly elevated at 1.4, although her baseline is 1.2. Her calcium was slightly high at 10.4. Her troponin was elevated at 76.3, and repeat was 66.2 her BNP was elevated at 682. UA was positive for urinary tract infection. Respiratory viral panel was negative. She was admitted for acute hypoxic respiratory failure, as well as the ankle fracture. Meds/Allgy Home Medications Ambulatory Orders Medication Instructions Recorded Confirmed losartan 100 mg tablet 100 mg PO QDAY hypertension #90 04/12/25 06/13/25 tabs albuterol sulfate 90 mcg/actuation 2 puff inhalation Q ID PRN 05/05/25 06/13/25 aerosol inhaler (Ventolin HFA) shortness of breath or wheezing #8.5 grams alendronate 70 mg tablet 70 mg PO QWEEK #13 tabs 04/2706/13/25 lidocaine 5 % topical patch 1 patch topical BID Pain # 60 ea 05/13/25 06/13/25 duloxetine 30 mg capsule,delayed 30 mg PO QDAY depress ion #30 caps 05/31/25 06/13/25 release naproxen 500 mg tablet 500 mg PO BID #60 tabs 05/3106/13/25 Allergies Allergies Allergy/AdvReac Type Severity Reaction Status Date / Time lisinopril Allergy Severe Cough Verified 06/13/25 07:03 oxycodone (From Percocet) Allergy Severe Emesis Verified 06/13/25 07:03 PFS Active Problems All Active Problems (Updated 06/13/25 @ 14:33 by Barbara Irving MD) Urinary tract infection (Acute) Bimalleolar ankle fracture (Acute) Respiratory failure with hypoxia (Acute) Osteoporosis (Chronic) Thoracolumbar back pain (Chronic) Iron deficiency (Chronic) Vitamin B12 deficiency (Chronic) Degenerative joint disease of knee, right (Chronic) Postmenopausal (Chronic) DDD (degenerative disc disease), lumbar (Chronic) Chronic left hip pain (Chronic) History of knee replacement (Chronic) Financial insecurity (Chronic) Prediabetes (Chronic) Localized edema (Chronic) Fatigue (Chronic) Dysuria (Chronic) Chronic kidney disease, stage 3b (Chronic) Knee joint pain (Chronic) Degenerative joint disease of knee, left (Chronic) Benign essential hypertension (Chronic) Macular degeneration (Chronic) Migraine headache with aura (Chronic) Depression (Chronic) Morbid obesity (Chronic) Anemia, unspecified (Chronic) Social History Social History Smoking Status: Former smoker If you are a former smoker, when did you quit? (Date/Year): 2010 Number of Years Smoked: 40 Second hand tobacco smoke exposure: Yes Do you dip or chew tobacco?: No Do you vape?: No Living arrangement: At home and Assisted living Living Condition: With caregiver(s) More Information: Patient currently lives at [facility] Support Person: Yes Relationship: Physical Activity: None Level: Dependent Home Mobility Equipment: Walker Do you feel safe in your home environment?: Yes Suffered physical, verbal, emotional, or financial abuse?: No History of Abuse: No ETOH Use: None Frequency: Occasional Substance Use: denies use POLST Patient has POLST: No Review of Systems Constitutional Reports: Weakness; Denies: Fatigue, Fever, Chills, Malaise or Poor appetite Eyes Denies: Pain, Irritation, Blurry vision, Vision loss, Diplopia or Eye discomfort Ears, nose, mouth, and throat Denies: Ear pain, Hearing loss, Tinnitus, Nose bleeds, Nasal discharge, Mouth lesions, Bleeding gums or Neck pain Cardiovascular Reports: shortness of breath with exertion and Decreased exercise tolerance; Denies: Irregular heart rate, chest pain, palpitations, edema or Syncope Respiratory Reports: Shortness of breath; Denies: Cough, Sputum production or Wheezing Gastrointestinal Denies: Abdominal pain, Abdominal distention, Nausea, Vomiting, Heartburn, Diarrhea or Constipation Genitourinary Reports: Painful urination, Urinary frequency and Urinary urgency Musculoskeletal Reports: Back pain; Denies: Neck pain, Extremity pain, Extremity swelling or Joint pain Integumentary/Breast Denies: Rash, Itching, Dryness, Redness or Skin pain Neurological Reports: General weakness; Denies: Headache, Weakness in extremities, Numbness in extremities, Abnormal gait or Dizziness Psychiatric Reports: Depression; Denies: Anxiety, Mood swings or Panic attacks Endocrine Denies: Excessive urination, Excessive thirst or Fatigue Hematologic/Lymphatic Denies: Anemia, Easy bruising or Easy bleeding Allergic/Immunologic Denies: Hives, Tongue swelling, Facial swelling or Wheezing Prior Level of Functionality: Lives alone. Recently moved out of [facility]. Ambulated with a walker or cane. Exam Exam Vital Signs: Vital Signs x48h Pulse Pulse Resp BP Pulse Ox O2 Flow Rate 06/13/25 15:14 3 06/13/25 15:14 89 18 3 06/13/25 14:50 80 28 H 93 5 06/13/25 14:20 78 19 192/83 H 97 4 06/13/25 11:13 88 20 191/107 H 92 4 06/13/25 09:25 88 18 2 Constitutional normal general appearance, no apparent distress, abnormal body habitus (obese) and no limitations HENMT normocephalic, head/scalp atraumatic and hearing grossly normal bilaterally Eyes PERRL, EOMs intact bilaterally and conjunctivae normal Neck/C-Spine visual inspection normal, trachea midline and cervical spine nontender Chest inspection of chest normal Respiratory breath sounds equal bilaterally, normal respiratory effort, clear to auscultation bilaterally, no wheezes, no rales and no retractions Diminished breath sounds in the bases. No active wheezing noted. Cardiovascular normal heart rate noted, regular rhythm noted, no gallop, no rub and no murmur Gastrointestinal abdomen normal to inspection, abdomen soft to palpation, nontender to palpation and normoactive bowel sounds Genitourinary no CVA tenderness Back/Pelvis spine normal to inspection Extremities normal to inspection, normal to palpation, no tenderness and full ROM Left ankle wrapped in splint, not unwrapped. Neurology no movement abnormality noted and no focal motor deficit noted Psychiatry mental status grossly normal and oriented x3 Skin skin color normal, no rash, no lesions and no wounds Conclusion/Plan Problem List (1) Respiratory failure with hypoxia: Plan: Patient presented with worsening hypoxia while here. She was as low as 71% on room air. She was placed on 4 L with improvement to 97%. CTA showed no acute PE, marked chronic elevation of the right hemidiaphragm with small superimposed right pleural effusion. There was resultant subtotal collapse of the right lower lobe, as well as numerous healing left rib fractures. Hypoxia likely related to atelectasis. Continue incentive spirometer 3 times daily. Patient has no underlying lung disease. She was recently prescribed albuterol inhaler as needed. Continue DuoNebs RT 4 times daily to help. No fevers, no chills, normal white count. No definitive consolidation. Less likely pneumonia. Some cardiomegaly noted. proBNP slightly elevated at 682. She did have a troponinemia 76.3 which is downtrending. No active chest pain. Echo has been ordered, pending. Qualifiers: Chronicity: acute Qualified Code(s): J96.01 - Acute respiratory failure with hypoxia (2) Bimalleolar ankle fracture: Plan: Patient presented withpatient presented due to mechanical fall. Had immediate pain in her left ankle following the fall. X-ray shows bimalleolar fractures, mild disruption of the ankle mortise. Orthopedic surgery was consulted, and are planning for surgery while inpatient. Pending improvement of her pulmonary status. Continue pain management with Tylenol as needed, oxycodone for moderate pain, morphine for severe pain. Qualifiers: Encounter type: initial encounter Fracture type: closed Laterality: l eft Qualified Code(s): S82.842A - Displaced bimalleolar fracture of left lower leg, initial encounter for closed fracture (3) Urinary tract infection: Plan: UA positive, some dysuria and urinary frequency noted. Continue IV Rocephin at this time until speciation. Qualifiers: Hematuria presence: without hematuria Urinary tract infection type: a cute cystitis Qualified Code(s): N30.00 - Acute cystitis without hematuria (4) DDD (degenerative disc disease), lumbar: Plan: Continue pain management as needed. Qualifiers: Disc-related pain type: unspecified whether pain present Qualified Code(s): M51.369 - Other intervertebral disc degeneration, lumbar region without mention of lumbar back pain or lower extremity pain (5) Chronic kidney disease, stage 3b: Plan: Creatinine around baseline of 1.2-1.4. Avoid nephrotoxic agents at this time. Continue to trend. (6) Benign essential hypertension: Plan: Home medication continued, losartan. Continue to trend. May be acutely elevated due to acute pain and shortness of breath. (7) Depression: Plan: Continue duloxetine. Qualifiers: Depression Type: unspecified Qualified Code(s): F32.A - Depression, unspecified Lab Results Lab results reviewed: Yes 06/13/25 07:58 06/13/25 07:58 EKG Results EKG Interpreted Independently: Yes Core Measures Anticipated LOS I expect patient to be DC'd or transferred within 96 hours.: Yes Issues Hospital Issues and Management Plan: None anticipated. DVT/VTE - Prophylaxis VTE/DVT Device ordered at admit?: No VTE/DVT Prophylaxis med ordered at admit?: Yes
--- OUTSIDE RECORDS SUMMARY | 2025-06-13 14:06 | EXTERNAL MEDICAL SUMMARY RPT | Continuity of Care Document ---
Author Organization [place] Address [address] [place] [address] Phone Problems date description facility 2025-03-26 11:11 [facility]25-03-26 11:11 [facility] right [facility] 2025-03-26 11:11 Other intervertebral disc degeneration, lumbar region without mention of lumbar back pain or lower extremity pain [facility] 2025-05-07 00:01 Essential (primary) hypertensio n [facility] 2025-05-07 00:01 Low back pain, unspecified [facility] 2025-05-07 00:01 Pain in thoracic spine [facility] 2025-05-07 00:01 Age-related osteopor osis without current pathological fracture [facility] 2025-05-07 00:01 Chronic kidney disease, stage 3 b [facility] 2025-05-07 00:01 Other specified abnormal findin gs of blood chemistry [facility] 2025-05-07 00:01 Fracture of one rib, unspecified side, initial encounter for closed fracture [facility] 2025-05-24 11:43 Essential (primary) hypertensio n [facility] 2025-05-24 11:43 Low back pain, unspecified [facility] 2025-05-24 11:43 Pain in thoracic spine [facility] 2025-05-24 11:43 Age-related osteopor osis without current pathological fracture [facility] 2025-05-24 11:43 Chronic kidney disease, stage 3 b [facility] 2025-05-24 11:43 Other specified abnormal findin gs of blood chemistry [facility] 2025-05-24 11:43 Fracture of one rib, unspecified side, initial encounter for closed fracture [facility] Results/Labs test date facility value unit notes Result panel 1 SARS-CoV-2 -RESP PCR PANEL 2025-06-13 07:08 [facility] NOT DETECTED (missing) A negative test result for this test indicates that SARS-CoV-2 RNA was not present in the specimen above the limit of detection. Testing performed on the [employer] RP2.1 Panel, a multiplexed nucleic acid repiratory panel. Negative results do not preclude infection with SARS-CoV-2 virus and should not be the sole basis of a patient management decision. In some patients repeat testing at various time points may be necessary for virus detection. False-negative results may arise from improper sample collection, degradation of viral RNA during shipping or storage, the presence of PCR inhibitors, and/or mutation in the SARS-CoV-2 virus. INFLUENZA A- RESP PCR PANEL 2025-06-13 07:08 [facility] NOT DETECTED (missing) Influenza A including subtypes H1, H3, and H1-2009 not detected by the [employer] RP2.1 Panel, a multiplexed nucleic acid test intended for the simultaneous qualitative detection and differentiation of nucleic acids from multiple viral and bacterial respiratory organisms. B. PARAPERTUSSIS- RESP PCR BAZZI 2025-06-13 07:08 [facility] NOT DETECTED (missing) Negative results for this organism do not preclude infection with this organism and may require additional laboratory testing (e.g., bacterial and viral culture, immunofluorescence, and radiography) when evaluating a patient with possible respiratory tract infection. B. PERTUSSIS- RESP PCR PANEL 2025-06-13 07:08 [facility] NOT DETECTED (missing) Negative results for this organism do not preclude infection with this organism and may require additional laboratory testing (e.g., bacterial and viral culture, immunofluorescence, and radiography) when evaluating a patient with possible respiratory tract infection. C. PNEUMONIAE- RESP PCR PANEL 2025-06-13 07:08 [facility] NOT DETECTED (missing) Negative results for this organism do not preclude infection with this organism and may require additional laboratory testing (e.g., bacterial and viral culture, immunofluorescence, and radiography) when evaluating a patient with possible respiratory tract infection. M. PNEUMONIAE- RESP PCR PANEL 2025-06-13 07:08 [facility] NOT DETECTED (missing) Negative results for this organism do not preclude infection with this organism and may require additional laboratory testing (e.g., bacterial and viral culture, immunofluorescence, and radiography) when evaluating a patient with possible respiratory tract infection. CORONAVIRUS 229E-RESP PCR 2025-06-13 07:08 [facility] NOT DETECTED (missing) Negative results in the setting ofa respiratory illness may be due to infection with pathogens not detected by this test, or lower respiratory tract infection that may not be detected by nasopharyngeal specimen. CORONAVIRUS HKU1-RESP PCR 2025-06-13 07:08 [facility] NOT DETECTED (missing) Negative results in the setting ofa respiratory illness may be due to infection with pathogens not detected by this test, or lower respiratory tract infection that may not be detected by nasopharyngeal specimen. CORONAVIRUS MU99-XJVB PCR 2025-06-13 07:08 [facility] NOT DETECTED (missing) Negative results in the setting ofa respiratory illness may be due to infection with pathogens not detected by this test, or lower respiratory tract infection that may not be detected by nasopharyngeal specimen. CORONAVIRUS ID10-HWTA PCR 2025-06-13 07:08 [facility] NOT DETECTED (missing) Negative results in the setting ofa respiratory illness may be due to infection with pathogens not detected by this test, or lower respiratory tract infection that may not be detected by nasopharyngeal specimen. HUMAN METAPNEUMOVIRUS 2025-06-13 07:08 [facility] NOT DETECTED (missing) Negative results in the setting ofa respiratory illness may be due to infection with pathogens not detected by this test, or lower respiratory tract infection that may not be detected by nasopharyngeal specimen. INFLUENZA B - RESP PCR PANEL 2025-06-13 07:08 [facility] NOT DETECTED (missing) Negative results in the setting ofa respiratory illness may be due to infection with pathogens not detected by this test, or lower respiratory tract infection that may not be detected by nasopharyngeal specimen. PARAINFLUENZA VIRUS 1 2025-06-13 07:08 [facility] NOT DETECTED (missing) Negative results in the setting ofa respiratory illness may be due to infection with pathogens not detected by this test, or lower respiratory tract infection that may not be detected by nasopharyngeal specimen. PARAINFLUENZA VIRUS 2 2025-06-13 07:08 [facility] NOT DETECTED (missing) Negative results in the setting ofa respiratory illness may be due to infection with pathogens not detected by this test, or lower respiratory tract infection that may not be detected by nasopharyngeal specimen. PARAINFLUENZA VIRUS 3 2025-06-13 07:08 [facility] NOT DETECTED (missing) Negative results in the setting ofa respiratory illness may be due to infection with pathogens not detected by this test, or lower respiratory tract infection that may not be detected by nasopharyngeal specimen. PARAINFLUENZA VIRUS 4 2025-06-13 07:08 [facility] NOT DETECTED (missing) Negative results in the setting ofa respiratory illness may be due to infection with pathogens not detected by this test, or lower respiratory tract infection that may not be detected by nasopharyngeal specimen. RHINOVIRUS/ENTEROVI JUSTIN 2025-06-13 07:08 [facility] NOT DETECTED (missing) Negative results in the setting ofa respiratory illness may be due to infection with pathogens not detected by this test, or lower respiratory tract infection that may not be detected by nasopharyngeal specimen. RSV- RESP PCR PANEL 2025-06-13 07:08 [facility] NOT DETECTED (missing) Negative results in the setting ofa respiratory illness may be due to infection with pathogens not detected by this test, or lower respiratory tract infection that may not be detected by nasopharyngeal specimen. ADENOVIRUS - RESP PCR PANEL 2025-06-13 07:08 [facility] NOT DETECTED (missing) Y Negative results in the setting ofa respiratory illness may be due to infection with pathogens not detected by this test, or lower respiratory tract infection that may not be detected by nasopharyngeal specimen. Result panel 2 BASOPHILS # (AUTO) 2025-06-13 07:58 [facility] 0.0 10 3/ul (missing) EOSINOPHILS # (AUTO) 2025-06-13 07:58 [facility] 0.0 10 3/ul (missing) NRBC ABSOLUTE COUNT (AUTO) 2025-06-13 07:58 [facility] 0.04 x10 3/ul (missing) NUCLEATED RED BLOOD CELLS AUTO 2025-06-13 07:58 [facility] 0.4 /100wbc (missing) BILIRUBIN,TOTAL 2025-06-13 07:58 [facility] 0.5 mg /dl As of April 2023 testing method has changed, this may include reference ranges. LYMPHOCYTES # (AUTO) 2025-06-13 07:58 [facility] 0.6 10 3/ul (missing) MONOCYTES # (AUTO) 2025-06-13 07:58 [facility] 0.8 10 3/ul (missing) LACTIC ACID, VENOUS 2025-06-13 07:58 [facility] 1.1 mmol/l N As of April 2023 testing method has changed, this may include reference ranges. ALBUMIN/GLOBULIN RATIO 2025-06-13 07:58 [facility] 1.2 (missing) (missing) CREATININE 2025-06-13 07:58 [facility] 1.4 mg/dl As of April 2023 testing method has changed, this may include reference ranges. CALCIUM 2025-06-13 07:58 [facility] 10.4 mg/dl As of April 2023 testing method has changed, this may include reference ranges. CHLORIDE 2025-06-13 07:58 [facility] 101 mmol/l As of April 2023 testing method has changed, this may include reference ranges. GLUCOSE 2025-06-13 07:58 [facility] 104 mg/dl As of April 2023 testing method has changed, this may include reference ranges. ALKALINE PHOSPHATASE 2025-06-13 07:58 [facility] 114 iu/l As of April 2023 testing method has changed, this may include reference ranges. HGB - HEMOGLOBIN 2025-06-13 07:58 [facility] 13.0 g /dl (missing) RED CELL DISTRIBUTION WIDTH 2025-06-13 07:58 [facility] 13.2 % (missing) SODIUM 2025-06-13 07:58 [facility] 139 mmol/l RECOLLECT Unknown AST ASPARTATE AMINOTRANSFERASE 2025-06-13 07:58 [facility] 18 iu/l As of April 2023 testing method has changed, this may include reference ranges. ALT ALANINE AMINOTRANSFERASE 2025-06-13 07:58 [facility] 18 iu/l As of April 2023 testing method has changed, this may include reference ranges. MEAN CORPUSCULAR HEMOGLOBIN 2025-06-13 07:58 [facility] 28.7 pg (missing) GLOBULIN 2025-06-13 07:58 [facility] 3.6 g/dl (missing) MEAN CORPUSCULAR HGB CONC 2025-06-13 07:58 [facility] 30.0 g/dl (missing) CARBON DIOXIDE - CO2 2025-06-13 07:58 [facility] 33 mmol/l As of April 2023 testing method has changed, this may include reference ranges. VBG HCO3 2025-06-13 07:58 [facility] 33.5 mmol/l (missing) VBG TOTAL CO2 2025-06-13 07:58 [facility] 35.5 mmol /l (missing) PLT - PLATELET COUNT 2025-06-13 07:58 [facility] 358 10 3/ul (missing) GFR - MDRD 2025-06-13 07:58 [facility] 36 (in g) Social History date description facility
[2025-06-13] MEDS ORDERED: MORPHINE 2 MG/ML CARPUJECT IVP PRN (14:53)
[2025-06-13] MEDS ORDERED: ONDANSETRON ODT 4 MG TABLET TL PRN (14:53)
[2025-06-13] MEDS ORDERED: ONDANSETRON 4 MG/2 ML VIAL IVP PRN (14:53)
[2025-06-13] MEDS: IPRATROPIUM/ALBUTEROL 3 ML NEB INH SCH (15:14)
--- NOTE | 2025-06-13 15:55 | PHARMACY PROGRESS NOTE ---
Best Possible Medication History Admit Date and Time: 06/13/25 1351 Home Medications Medication Instructions Recorded Confirmed Type losartan 100 mg tablet 100 mg PO QDAY hypertension #90 04/12/25 06/13/25 Rx tabs albuterol sulfate 90 mcg/actuation 2 puff inhalation Q ID PRN 05/05/25 06/13/25 Rx aerosol inhaler (Ventolin HFA) shortness of breath or wheezing #8.5 grams alendronate 70 mg tablet 70 mg PO QWEEK #13 tabs 04/2706/13/25 Rx lidocaine 5 % topical patch 1 patch topical BID Pain # 60 ea 05/13/25 06/13/25 Rx duloxetine 30 mg capsule,delayed 30 mg PO QDAY depress ion #30 caps 05/31/25 06/13/25 Rx release naproxen 500 mg tablet 500 mg PO BID #60 tabs 05/3106/13/25 Rx Processed by: Nursing Medications reviewed in ED?: Yes Medication History completed: Yes Secondary Source(s): Physician records, Pharmacy records and Insurance records [facility] Statement: As the person ultimately responsible for medication therapy, providers are able to order a medication from an existing home medication list in [facility] via the "Reconcile Routine" prior to Confirmation of that medication by human resources support specialist. Such practice is discouraged except when the physician, in their clinical judgment, deems that a medical need exists for a medication without regard to previous use.
[2025-06-13] MEDS: methylPREDNISolone SUCCINATE 40 MG/ML VIAL IVP SCH (16:01)
--- NOTE | 2025-06-13 18:02 | ECHO Report ---
Version: 1 Study ID: [id number] [id number] Adult Echocardiogram Report Name: KAIT CHEN Study Date: 06/13/2025, 4: 21 PM Patient Location: ^2207^01 HR: 84 bpm : 1945 (MM/DD/YYYY) Gender: Female Height: 62 in Age: 79 Years Weight: 225 lb BSA: 2.01 m² Reason For Study: FABIENNE Interpretation Summary The visual left ventricular ejection fraction is estimated at 70 to 75%. The overall diastolic pattern is one of restrictive filling with reduction of left ventricular compliance and marked elevation of left ventricular filling pressures. The right ventricular systolic function is normal. The pulmonary artery systolic pressure is moderately increased. The right ventricular systolic pressure is 48mmHg Left Ventricle: The left ventricle is normal in size. There is normal left ventricular wall thickness. No thrombus seen in the left ventricle. The visual left ventricular ejection fraction is estimated at 70 to 75%. The overall diastolic pattern is one of restrictive filling with reduction of left ventricular compliance and marked elevation of left ventricular filling pressures. Right Ventricle: The right ventricle is not well visualized. TAPSE is consistent with normal right ventricular function. The tricuspid annular plane systolic excursion (TAPSE) measurement is 2 cm. The right ventricular systolic function is normal. Aortic Valve: The aortic valve is normal in structure and function. The aortic valve is trileaflet. No hemodynamically significant valvular aortic stenosis. No aortic regurgitation is present. Mitral Valve: The mitral valve leaflets are mildly calcified. No evidence of mitral stenosis is seen. There is mild mitral regurgitation. Tricuspid Valve: The tricuspid valve is normal in structure and function. There is no tricuspid stenosis. Mild to moderate tricuspid regurgitation present. Pulmonic Valve: The pulmonic valve is normal in structure and function. There is no pulmonic valvular stenosis. Mild pulmonic valvular regurgitation is present. Left Atrium: The left atrial size is normal. Right Atrium: Right atrium not well visualized. The inferior vena cava is not well visualized. The central venous pressure cannot be estimated on this study. Atrial Septum: The interatrial septum appears normal, without evidence of shunt by 2D imaging and color Doppler. Aorta: The ascending aorta is normal in size. The aortic arch is not well seen. The sinuses of Valsalva are normal in size. Pulmonary Artery: The pulmonary artery is not well visualized, but is probably normal size. The pulmonary artery systolic pressure is moderately increased. The right ventricular systolic pressure is 48mmHg. IVC not seen. RVSP > 45 mmHg. Pericardium/Pleural Space: There is no pericardial effusion. Left Ventricle IVSd: 1.10 cm LVIDd: 4.5 cm LVPWd: 0.86 cm LVIDs: 2.8 cm ESV(sp4-el): 50.7 ml Right Ventricle TAPSE: 1.96 cm RV S Conrad: 12.9 cm/sec Atria LA dimension: 5.8 cm LAV(MOD-sp4): 50.9 ml LAV(MOD-sp2): 50.5 ml Diastolic Function MV dec time: 0.24 sec MV E max conrad: 105.4 cm/sec MV A max conrad: 131.8 cm/sec Aortic Valve LVOT diam: 2.00 cm LV V1 mean P.2 mmHg LV V1 mean: 81.4 cm/sec LV V1 VTI: 28.8 cm Ao V2 VTI: 44.2 cm Ao mean P.5 mmHg Ao V2 mean: 147.9 cm/sec LV V1 max: 125.2 cm/sec LV V1 max P.3 mmHg Ao max P.0 mmHg Ao V2 max: 200.0 cm/sec Mitral Valve MV max P.3 mmHg MV V2 max: 143.7 cm/sec MV mean P.1 mmHg MV V2 mean: 95.2 cm/sec MV V2 VTI: 32.2 cm Tricuspid Valve TR max P.8 mmHg TR max conrad: 334.6 cm/sec TV max P.8 mmHg Aorta Ao root diam: 3.1 cm MMode/2D Measurements & Calculations Ao root diam: 3.1 cm BMI: 41.2 kilograms/m² BSA(Haycock): 2.17 m² ESV(sp4-el): 50.7 ml IVSd: 1.10 cm LA A4C-A/L: 18.2 cm² LA dimension: 5.8 cm LA ESV-A/L: 46.6 ml LA Vol Index: 45.1 ml/m² LAV(MOD-sp2): 50.5 ml LAV(MOD-sp4): 50.9 ml LVIDd: 4.5 cm LVIDs: 2.8 cm LVOT diam: 2.00 cm LVPWd: 0.86 cm TAPSE: 1.96 cm Doppler Measurements & Calculations Ao max P.0 mmHg Ao mean P.5 mmHg Ao V2 max: 200.0 cm/sec Ao V2 mean: 147.9 cm/sec Ao V2 VTI: 44.2 cm Lat E/e': 15.9 LV V1 max: 125.2 cm/sec LV V1 max P.3 mmHg LV V1 mean: 81.4 cm/sec LV V1 mean P.2 mmHg LV V1 VTI: 28.8 cm Med E/e': 19.0 MV A max conrad: 131.8 cm/sec MV dec time: 0.24 sec MV DVI-pr: 0.80 MV E max conrad: 105.4 cm/sec MV max P.3 mmHg MV mean P.1 mmHg MV V2 max: 143.7 cm/sec MV V2 mean: 95.2 cm/sec MV V2 VTI: 32.2 cm PA max P.6 mmHg PA V2 max: 95.2 cm/sec RV S Conrad: 12.9 cm/sec TR max P.8 mmHg TR max conrad: 334.6 cm/sec TV max P.8 mmHg Other Measurements & Calculations Ao root area: 7.7 cm² BRUNO(I,D): 2.05 cm² BRUNO(V,D): 1.97 cm² EDV(Teich): 94.3 ml EF(sp-el): 50.0 % EF(Teich): 68.5 % ESV(Teich): 29.7 ml FS: 38.2 % LVOT area: 3.1 cm² MV E/A: 0.80 MVA(VTI): 2.8 cm² SV(LVOT): 90.8 ml MD Meghna Morris 06/13/2025, 6: 01 PM Ordering Physician: Barbara Irving Referring Physician: Barbara Irving Performed By: SAV
[2025-06-13] MEDS: SODIUM CHLORIDE FLUSH 0.9% 10 ML SYRINGE IVP SCH (23:47)
[2025-06-14 05:37] LABS: HCT - HEMATOCRIT 37.2 % (37.0-47.0); HGB - HEMOGLOBIN 10.8 g/dL (12.0-16.0); MEAN PLATELET VOLUME 9.7 fL (7.9-10.8); PLT - PLATELET COUNT 329.0 10^3/uL (130-450); RED CELL DISTRIBUTION WIDTH 13.2 % (12.0-15.0)
[2025-06-14 05:55] LABS: BUN - BLOOD UREA NITROGEN 37.0 mg/dL (6-20); CARBON DIOXIDE - CO2 34.0 mmol/L (21-32); CREATININE 1.1 mg/dL (0.6-1.3); GFR - MDRD 48.0 (>89)
[2025-06-14] MEDS: LOSARTAN 50 MG TABLET PO SCH (08:24)
[2025-06-14] MEDS: HEPARIN 5,000 UNIT/ML VIAL SUBQ SCH (09:22)
[2025-06-14] MEDS: cefTRIAXone 1 GM VIAL IVP SCH (10:57)
--- NOTE | 2025-06-14 11:31 | PROVIDER PROGRESS NOTE ---
Subjective Subjective Subjective: This morning, patient states that she is doing well. She has no shortness of breath. She has a mild cough with some clear to yellow sputum production. No fevers or chills. Nobody around her has been sick. She is trying to use her incentive spirometer as much as she can. She is a 79-year-old female who presented for ground-level fall. She has a left ankle bimalleolar fracture, for which orthopedic surgery is going to operate on Saturday, 06/16, pending her respiratory status. She developed acute hypoxic respiratory failure. Her CTA was negative for PE, she has no chronic lung disease. Respiratory viral panel was negative. Procalcitonin is pending. She does have some atelectasis noted, as well as chronic elevation of her diaphragm. She is being advised to continue incentive spirometry, DuoNebs are also ordered. Current Medications Current Medications Current Medications: Current Medications Generic Name Dose Route Start Last Admin Trade Name Freq PRN Reason Stop Dose Admin Acetaminophen 650 mg 06/13/25 14:53 Acetaminophen 325 Mg Tablet PO Q4HR PRN Pain 1 to 4, or Fever Hydrocodone Bitart/Acetaminophen 1 tab 06/13/25 14:53 Hydrocod/Acetam 5/325 Mg Tablet PO Q4HR PRN Pain 5 to 7 Albuterol/Ipratropium 3 ml 06/13/25 15:00 06/14/25 10:26 Ipratropium/Albuterol 3 Ml Neb INH 3 ml RTQID SHANNON Administration Ceftriaxone Sodium 1 gm 06/14/25 09:00 06/14/25 10:57 Ceftriaxone 1 Gm Vial IVP 1 gm DAILY SHANNON Administration Duloxetine HCl 30 mg 06/14/25 09:00 06/14/25 08:24 Duloxetine 30 Mg Capsule PO 30 mg DAILY SHANNON Administration Heparin Sodium (Porcine) 5,000 unit 06/14/25 09:00 06/14/25 09:22 Heparin 5,000 Unit/Ml Vial SUBQ 5,000 unit BID SHANNON Administration Losartan Potassium 100 mg 06/14/25 09:00 06/14/25 08:24 Losartan 50 Mg Tablet PO 100 mg DAILY SHANNON Administration Morphine Sulfate 2 mg 06/13/25 14:53 Morphine 2 Mg/Ml Carpuject IVP Q2HR PRN Pain 8 to 10 Ondansetron HCl 4 mg 06/13/25 14:53 Ondansetron Odt 4 Mg Tablet TL Q6HR PRN Nausea / Vomiting Ondansetron HCl 4 mg 06/13/25 14:53 Ondansetron 4 Mg/2 Ml Vial IVP Q6HR PRN Nausea / Vomiting Sodium Chloride 10 ml 06/13/25 14:53 Sodium Chloride Flush 0.9% 10 Ml Syringe IVP PRN PRN NEEDED PER PROVIDER ORDERS Sodium Chloride 10 ml 06/13/25 17:00 06/14/25 11:01 Sodium Chloride Flush 0.9% 10 Ml Syringe IVP 10 ml 0100,0900,1700 [facility] Administration Objective Vital Signs/Intake & Output Reviewed Vital Signs: Yes Vital Signs: Vital Signs x48h Temp Pulse Pulse Resp BP Pulse Ox O2 Flow Rate 06/14/25 10:27 81 24 06/14/25 10:21 97.7 F 95 16 116/54 L 93 2 06/14/25 05:26 2.5 06/14/25 05:25 2 06/14/25 05:13 3 06/14/25 05:13 78 16 3 Intake & Output: Intake & Output 06/11/25 06/12/25 06/13/25 06/14/25 23:59 23:59 23:59 23:59 Intake Total 220 / 220 100 / 100 Output Total 250 / 250 400 / 400 Balance -30 / -30 -300 / -300 Weight (kg) 97.5 kg Objective General Appearance: positive No acute distress and Alert; negative Anxious Eyes Bilateral: positive Normal inspection, PERRL and EOMI ENT: positive ENT inspection nml, Pharynx nml and No signs of dehydration Neck: positive Nml inspection, Thyroid nml and No JVD Respiratory: positive Chest non-tender, No respiratory distress, Breath sounds nml and Other (Diminished airflow bilaterally, especially in the bases, but no crackles, wheezes, or rhonchi noted); negative Wheezes, Rales or Rhonchi Cardiovascular: positive Regular rate & rhythm, No murmur and No gallop; negative Tachycardia or Systolic murmur Abdomen: positive Non-tender, No organomegaly and No distention; negative Guarding or Splenomegaly Back: positive Nml inspection; negative CVA tenderness (R) or CVA tenderness (L) Skin: positive Color nml, No rash, Warm and Dry Extremities: positive Other (L ankle splinted and wrapped; not unwrapped) Neurologic/Psychiatric: positive Oriented x3, Motor nml and Mood/affect nml Lab Results 06/14/25 05:30 06/14/25 05:30 Other Labs: Lab Results x24hrs 06/14/25 Range/Units 05:30 WBC 7.9 (4.8-10.8) x10^3/uL RBC 3.84 L (4.20-5.40) 10^6/uL Hgb 10.8 L (12.0-16.0) g/dL Hct 37.2 (37.0-47.0) % MCV 96.9 (81.0-99.0) fL MCH 28.1 (27.0-31.0) pg MCHC 29.0 L (32.0-36.0) g/dL RDW 13.2 (12.0-15.0) % Plt Count 329 (130-450) 10^3/uL MPV 9.7 (7.9-10.8) fL Sodium 139 (135-145) mmol/L Potassium 4.7 H (3.5-4.5) mmol/L Chloride 102 (101-111) mmol/L Carbon Dioxide 34 H (21-32) mmol/L Anion Gap 3.0 L (6-13) BUN 37 H (6-20) mg/dL Creatinine 1.1 (0.6-1.3) mg/dL Estimated GFR (MDRD) 48 L (>89) Glucose 104 (74-104) mg/dL Calcium 9.5 (8.5-10.3) mg/dL Magnesium 2.0 (1.7-2.3) mg/dL Diagnostic Imaging Diagnostic Imaging Results: positive Final report reviewed Assessment/Plan Problem List (1) Respiratory failure with hypoxia: Impression: Patient presented with worsening hypoxia while here. She was as low as 71% on room air. She was placed on 4 L with improvement to 97%. This morning, she is on 2L. CTA showed no acute PE, marked chronic elevation of the right hemidiaphragm with small superimposed right pleural effusion. There was resultant subtotal collapse of the right lower lobe, as well as numerous healing left rib fractures (which patient does not recall ever having). Hypoxia likely related to atelectasis. Continue incentive spirometer 3 times daily. Patient has no underlying lung disease. She was recently prescribed albuterol inhaler as needed. Continue DuoNebs RT 4 times daily to help. No fevers, no chills, normal white count. No definitive consolidation. Less likely pneumonia. Procalcitonin ordered this AM as patient does have a cough with some sputum production. RBP negative. Some cardiomegaly noted. proBNP slightly elevated at 682. She did have a troponinemia 76.3 which is downtrending. No active chest pain. Echo has been ordered, showed pulmonary artery systolic pressure is moderately increased - she may have a component of pulmonary hypertension. Qualifiers: Chronicity: acute Qualified Code(s): J96.01 - Acute respiratory failure with hypoxia (2) Bimalleolar ankle fracture: Impression: Patient presented with mechanical fall. Had immediate pain in her left ankle following the fall. X-ray shows bimalleolar fractures, mild disruption of the ankle mortise. Orthopedic surgery was consulted, and are planning for surgery while inpatient, likely on Saturday, pending improvement of her pulmonary status. PT evaluation after surgery. Continue pain management with Tylenol as needed, oxycodone for moderate pain, morphine for severe pain. Qualifiers: Encounter type: initial encounter Fracture type: closed Laterality: l eft Qualified Code(s): S82.842A - Displaced bimalleolar fracture of left lower leg, initial encounter for closed fracture (3) Urinary tract infection: Impression: UA positive, some dysuria and urinary frequency noted. Continue IV Rocephin at this time until speciation. Qualifiers: Hematuria presence: without hematuria Urinary tract infection type: a cute cystitis Qualified Code(s): N30.00 - Acute cystitis without hematuria (4) DDD (degenerative disc disease), lumbar: Impression: Continue pain management as needed. Qualifiers: Disc-related pain type: unspecified whether pain present Qualified Code(s): M51.369 - Other intervertebral disc degeneration, lumbar region without mention of lumbar back pain or lower extremity pain (5) Chronic kidney disease, stage 3b: Impression: Creatinine around baseline of 1.2-1.4. Avoid nephrotoxic agents at this time. Continue to trend. (6) Benign essential hypertension: Impression: Home medication continued, losartan. Continue to trend. May be acutely elevated due to acute pain and shortness of breath. (7) Depression: Impression: Continue duloxetine. Qualifiers: Depression Type: unspecified Qualified Code(s): F32.A - Depression, unspecified
[2025-06-14] MEDS ORDERED: COD LIVER OIL/ZINC OXIDE 113 GM TUBE TOP PRN (11:33)
[2025-06-14] MEDS: PRENATAL VITAMIN TABLET PO SCH (12:35)
[2025-06-14] MEDS: NYSTATIN POWDER 15 GM TOP SCH (20:50)
[2025-06-15 04:54] LABS: HCT - HEMATOCRIT 39.9 % (37.0-47.0); HGB - HEMOGLOBIN 11.3 g/dL (12.0-16.0); MEAN PLATELET VOLUME 9.8 fL (7.9-10.8); PLT - PLATELET COUNT 304.0 10^3/uL (130-450); RED CELL DISTRIBUTION WIDTH 13.4 % (12.0-15.0)
[2025-06-15 05:10] LABS: BUN - BLOOD UREA NITROGEN 38.0 mg/dL (6-20); CARBON DIOXIDE - CO2 35.0 mmol/L (21-32); CREATININE 1.3 mg/dL (0.6-1.3); GFR - MDRD 39.0 (>89)
[2025-06-15] MEDS: CYANOCOBALAMIN 500 MCG TABLET PO SCH (08:45)
[2025-06-15] MEDS: SODIUM CHLORIDE FLUSH 0.9% 10 ML SYRINGE IVP PRN (08:45)
[2025-06-15] MEDS: DOCUSATE SODIUM 250 MG CAPSULE PO SCH (08:46)
[2025-06-15] MEDS: SENNA 8.6 MG TABLET PO SCH (08:46)
--- NOTE | 2025-06-15 14:45 | PROVIDER PROGRESS NOTE ---
Subjective Prog Note Date Prog Note Date: 06/15/25 Prog Note Time: 14:43 Subjective Pt reports feeling: No change Subjective: She seems sleepy, slow. Watching TV. Did not eat breakfast but did eat almost all of her lunch. Denies any significant pain unless she has to bend or rotate the fractured ankle. She denies chest pain, cough, and has no shortness of breath at rest. She is from [place]. She moved out to [facility] when quite a bit of her family moved here. 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 When her granddaughter came to this [place] with the , granddaughter's family also came to the [place]. Family is still around. Patient was living independently in apartment. A year and a half ago went to go live with her granddaughter when she started slowing down and could not take care of herself as well anymore. Her grandson in law is coming back from deployment and is asked that she please move out. So she has now been living in an assisted living facility for the last 3 months. So when she is discharged from the hospital, she will be discharged to an assisted living facility where she is expected to have some level of independence. Current Medications Current Medications Current Medications: Current Medications Generic Name Dose Route Start Last Admin Trade Name Shamir PRN Reason Stop Dose Admin Acetaminophen 650 mg 06/13/25 14:53 Acetaminophen 325 Mg Tablet PO Q4HR PRN Pain 1 to 4, or Fever Hydrocodone Bitart/Acetaminophen 1 tab 06/13/25 14:53 Hydrocod/Acetam 5/325 Mg Tablet PO Q4HR PRN Pain 5 to 7 Albuterol/Ipratropium 3 ml 06/13/25 15:00 06/15/25 11:35 Ipratropium/Albuterol 3 Ml Neb INH 3 ml RTQID SHANNON Administration Ceftriaxone Sodium 1 gm 06/14/25 09:00 06/15/25 08:45 Ceftriaxone 1 Gm Vial IVP 1 gm DAILY SHANNON Administration Cyanocobalamin 500 mcg 06/15/25 09:00 06/15/25 08:45 Cyanocobalamin 500 Mcg Tablet PO 500 mcg DAILY SHANNON Administration Docusate Sodium 250 - 500 mg 06/15/25 09:00 06/15/25 08:46 Docusate Sodium 250 Mg Capsule PO 250 mg DAILY SHANNON Administration Duloxetine HCl 30 mg 06/14/25 09:00 06/15/25 08:45 Duloxetine 30 Mg Capsule PO 30 mg DAILY SHANNON Administration Heparin Sodium (Porcine) 5,000 unit 06/14/25 09:00 06/15/25 08:46 Heparin 5,000 Unit/Ml Vial SUBQ 5,000 unit BID SHANNON Administration Losartan Potassium 100 mg 06/14/25 09:00 06/15/25 08:46 Losartan 50 Mg Tablet PO 100 mg DAILY SHANNON Administration Morphine Sulfate 2 mg 06/13/25 14:53 Morphine 2 Mg/Ml Carpuject IVP Q2HR PRN Pain 8 to 10 Nystatin 1 applic 06/14/25 21:00 06/15/25 08:46 Nystatin Powder 15 Gm TOP 1 applic BID SHANNON Administration Ondansetron HCl 4 mg 06/13/25 14:53 Ondansetron Odt 4 Mg Tablet TL Q6HR PRN Nausea / Vomiting Ondansetron HCl 4 mg 06/13/25 14:53 Ondansetron 4 Mg/2 Ml Vial IVP Q6HR PRN Nausea / Vomiting Polyethylene Glycol 17 gm 06/15/25 09:00 06/15/25 08:46 Polyethylene Glycol 3350 17 Gm Packet PO 17 gm DAILY SHANNON Administration Multivit/Folic Acid/Iron 1 tab 06/14/25 12:00 06/15/25 08:46 Vitamin Tablet PO 1 tab DAILYWM SHANNON Administration Senna 8.6 - 17.2 mg 06/15/25 09:00 06/15/25 08:46 Senna 8.6 Mg Tablet PO 8.6 mg DAILY SHANNON Administration Sodium Chloride 10 ml 06/13/25 14:53 06/15/25 08:45 Sodium Chloride Flush 0.9% 10 Ml Syringe IVP 10 ml PRN PRN Administration NEEDED PER PROVIDER ORDERS Sodium Chloride 10 ml 06/13/25 17:00 06/15/25 08:45 Sodium Chloride Flush 0.9% 10 Ml Syringe IVP 10 ml 0100,0900,1700 SHANNON Administration Zinc Oxide 113 gm 06/14/25 11:33 Cod Liver Oil/Zinc Oxide 113 Gm Tube TOP PRN PRN Skin Care Objective Vital Signs/Intake & Output Reviewed Vital Signs: Yes Vital Signs: Vital Signs x48h Temp Pulse Pulse Resp BP Pulse Ox O2 Flow Rate 06/15/25 11:36 80 20 1 06/15/25 08:05 36.6 C 93 24 142/74 H 94 1 06/15/25 07:15 1 06/15/25 07:15 84 20 2 Intake & Output: Intake & Output 06/12/25 06/13/25 06/14/25 06/15/25 23:59 23:59 23:59 23:59 Intake Total 220 / 220 1000 / 1000 645 / 645 Output Total 250 / 250 1050 / 1050 350 / 350 Balance -30 / -30 -50 / -50 295 / 295 Weight (kg) 97.5 kg Objective General Appearance: positive No acute distress, Alert and Other (Slow speaking, slow moving. But she knows that she is in the hospital, that she fell and broke her ankle. obese, well developed. ) Eyes Bilateral: positive PERRL and EOMI ENT: positive No signs of dehydration Neck: positive Thyroid nml and No JVD; negative Stiff neck or Carotid bruit Respiratory: positive Chest non-tender, No respiratory distress and Breath sounds nml Cardiovascular: positive Regular rate & rhythm, No murmur and No gallop Abdomen: positive Non-tender, No organomegaly, Nml bowel sounds and No distention; negative Tenderness Skin: positive Color nml, Warm and Dry Extremities: positive Non-tender (except for ankle that is brigida wrapped from foot to calf), Full ROM and Nml appearance; negative Pedal edema Neurologic/Psychiatric: positive Oriented x3, CN's nml (2-12) and Motor nml; negative Mood/affect nml (slow, tired, ?depressed) Lab Results 06/15/25 04:26 06/15/25 04:26 Other Labs: Lab Results x24hrs 06/15/25 Range/Units 04:26 WBC 7.0 (4.8-10.8) x10^3/uL RBC 3.98 L (4.20-5.40) 10^6/uL Hgb 11.3 L (12.0-16.0) g/dL Hct 39.9 (37.0-47.0) % MCV 100.3 H (81.0-99.0) fL MCH 28.4 (27.0-31.0) pg MCHC 28.3 L (32.0-36.0) g/dL RDW 13.4 (12.0-15.0) % Plt Count 304 (130-450) 10^3/uL MPV 9.8 (7.9-10.8) fL Sodium 140 (135-145) mmol/L Potassium 4.5 (3.5-4.5) mmol/L Chloride 101 (101-111) mmol/L Carbon Dioxide 35 H (21-32) mmol/L Anion Gap 4.0 L (6-13) BUN 38 H (6-20) mg/dL Creatinine 1.3 (0.6-1.3) mg/dL Estimated GFR (MDRD) 39 L (>89) Glucose 102 (74-104) mg/dL Calcium 9.6 (8.5-10.3) mg/dL Magnesium 2.2 (1.7-2.3) mg/dL Assessment/Plan Problem List (1) Respiratory failure with hypoxia: Impression: Patient presented with hypoxia. She was at her [facility] and found down for unknown length of time. EMS found her 02 sat to be 60% on room air.. She was as low as 71% on room air here in our ER. She was placed on 4 L with improvement to 97%. CTA showed no acute PE, no pneumonia, no CHF with marked chronic elevation of the right hemidiaphragm with small superimposed right pleural effusion. There was resultant subtotal collapse of the right lower lobe, as well as numerous healing left rib fractures (which patient does not recall ever having). Initial CXR said CHF but the CT reading directly contradicted that. She doesn't have a fever, chills, or elevated WBC but did have a cough and some congestion 06/14. Previous hospitalist did procalcitonin and was 0.06. Patient has no underlying lung disease. She was recently prescribed albuterol inhaler as needed. Continue DuoNebs RT 4 times daily to help. Some cardiomegaly noted. proBNP slightly elevated at 682. She did have a troponinemia 76.3 which was downtrending to 66.2. No active chest pain. Echo showed pulmonary artery systolic pressure is moderately increased - she may have a component of pulmonary hypertension Most likely hypoxia related to atelectasis. Continue incentive spirometer 3 times daily. I discussed the case with anesthesia today. They are concerned, understandably, is her safety of undergoing a general anesthesia procedure. Today she is down to 1 L nasal cannula. I feel that she would be able to go to the OR safely. Qualifiers: Chronicity: acute Qualified Code(s): J96.01 - Acute respiratory failure with hypoxia (2) Bimalleolar ankle fracture: Impression: Patient presented with mechanical fall. Had immediate pain in her left ankle following the fall. X-ray shows bimalleolar fractures, mild disruption of the ankle mortise. Orthopedic surgery was consulted, and are planning for surgery while inpatient, likely on Saturday (today is Saturday), pending improvement of her pulmonary status. PT evaluation done today and preliminary report is deconditioning. May need SNF after surgery. I reviewed the surgical risk calculator and she has a 9.3% chance of complication or 7.7% chance of any complication. This includes pneumonia, cardiac, venous thromboembolism. There is a 79% predictability she will need to go to a nursing or rehab facility. They also predict she will have a 25% of postoperative delirium.I will have PT evaluate her for possible placement to [facility] facility at discharge after her ankle repair. Continue pain management with Tylenol as needed, oxycodone for moderate pain, morphine for severe pain. Qualifiers: Encounter type: initial encounter Fracture type: closed Laterality: l eft Qualified Code(s): S82.842A - Displaced bimalleolar fracture of left lower leg, initial encounter for closed fracture (3) Urinary tract infection: Impression: UA positive, some dysuria and urinary frequency noted. Continue IV Rocephin at this time until speciation. Today is day #2/5 (especially since she is about to get hardware in her ankle tomorrow) Qualifiers: Hematuria presence: without hematuria Urinary tract infection type: a cute cystitis Qualified Code(s): N30.00 - Acute cystitis without hematuria (4) DDD (degenerative disc disease), lumbar: Impression: Continue pain management as needed. She is controlled for now as long as she is at bedrest. She received IV MS on 06/13 and two doses of Vicodin that day. None since. Qualifiers: Disc-related pain type: unspecified whether pain present Qualified Code(s): M51.369 - Other intervertebral disc degeneration, lumbar region without mention of lumbar back pain or lower extremity pain (5) Chronic kidney disease, stage 3b: Impression: Creatinine around baseline of 1.2-1.4. Avoid nephrotoxic agents at this time. Continue to trend. (6) Benign essential hypertension: Impression: Home medication continued, losartan. Systolic is 132-147 for 48 hourss. Continue to trend. May be acutely elevated due to acute pain and shortness of breath. (7) Depression: Impression: Continue duloxetine. Qualifiers: Depression Type: unspecified Qualified Code(s): F32.A - Depression, unspecified
--- NOTE | 2025-06-15 16:23 | PT Plan of Care ---
PT Plan of Care Physical Therapy Plan of Care: Diagnosis Diagnosis L ankle bimalleolar fx Diagnosis AHRF Referring Provider Miryam Kerns Patient Status Inpatient Chief Complaint Chief Complaint L ankle pain, limited mobility Onset of Chief Complaint [employer]KING [employer] Balance/ Functional Results Sitting Balance Fair Standing Balance Unable Assessment Assessment Pt is a pleasant 79yo F referred for PT eval AHR and L ankle bimalleolar fx. Pt is NWB and pending surgical repair which is scheduled once pulmonary status improves. Pt lives alone and is [place] at baseline with walker. Pt was unable to provide home environment info so will need to clarify with family. H/o falls with rib fxs, TKA, and flat affect. Please see chart for PMH. Pt cleared for eval by hospitalist for bed level assessment only, NWB LLE. Upon PT eval, met supine in bed on RA but with NC nearby and O2 flowing. Per RN pt likely removed O2 unknowingly . Pt had de-sated to 70s but recovered to >90% on 3L within 10 min. Able to resume 1L setting at end of PT eval. Pt presents A&Ox2, agreeable and pleasant. Follows 2-3 step cues 90% of time and demonstrates active motion of BUE and RLE. LLE limited by ankle fx and weight of splint. Requires maxA for LLE mobility. Requires Vimal for RLE and indep with BUE mobility. Overall strength in uninjured limbs 3-/5. Given general deconditioning and overall impairments in strength, endurance, acute fx and pain, pt will benefit from skilled PT in acute setting to progress upright tolerance, balance and gait when cleared by ortho. When medically clear, PT rec dc to SNF for further rehab as pt will require continued skilled rehab for post-op recovery. Goals Improve bed mobility to: Moderate Assist Improve supine to sit to: Moderate Assist Improve sit to stand to: Moderate Assist Improve pivot transfer ability Moderate Assist to: Improve sit to supine to: Moderate Assist Improve gait ability to: Min A Assistive Device Used: Front Wheeled Walker Improve Sitting Balance to: Good Improve Standing Balance to: Fair PT Plan of Care Frequency 1-2x/day Duration Until discharge Discharge Recommendations Discharge Location Group Home Facility Other tbd Transport Needs at Discharge B.L.S Other BLS d/t acute fx, poor trunk control, confusion
--- NOTE | 2025-06-16 09:19 | CONSULTATION NOTE ---
History of Present Illness History of Present Illness HPI Comment/Other: Patient is an 79-year-old female who was admitted through the emergency room in respiratory failure. She had fallen and sustained a bimalleolar fracture and I have been consulted regarding management of the fracture. The patient states that that is the only pain that she is having right now. Meds/Allgy Home Medications Ambulatory Orders Medication Instructions Recorded Confirmed losartan 100 mg tablet 100 mg PO QDAY hypertension #90 04/12/25 06/13/25 tabs albuterol sulfate 90 mcg/actuation 2 puff inhalation Q ID PRN 05/05/25 06/13/25 aerosol inhaler (Ventolin HFA) shortness of breath or wheezing #8.5 grams alendronate 70 mg tablet 70 mg PO QWEEK #13 tabs 04/2706/13/25 lidocaine 5 % topical patch 1 patch topical BID Pain # 60 ea 05/13/25 06/13/25 duloxetine 30 mg capsule,delayed 30 mg PO QDAY depress ion #30 caps 05/31/25 06/13/25 release naproxen 500 mg tablet 500 mg PO BID #60 tabs 05/3106/13/25 Allergies Allergies Allergy/AdvReac Type Severity Reaction Status Date / Time lisinopril Allergy Severe Cough Verified 06/13/25 07:03 oxycodone (From Percocet) Allergy Severe Emesis Verified 06/13/25 07:03 PFSH Active Problems All Active Problems (Updated 06/13/25 @ 14:33 by Barbara Irving MD) Urinary tract infection (Acute) Bimalleolar ankle fracture (Acute) Respiratory failure with hypoxia (Acute) Osteoporosis (Chronic) Thoracolumbar back pain (Chronic) Iron deficiency (Chronic) Vitamin B12 deficiency (Chronic) Degenerative joint disease of knee, right (Chronic) Postmenopausal (Chronic) DDD (degenerative disc disease), lumbar (Chronic) Chronic left hip pain (Chronic) History of knee replacement (Chronic) Financial insecurity (Chronic) Prediabetes (Chronic) Localized edema (Chronic) Fatigue (Chronic) Dysuria (Chronic) Chronic kidney disease, stage 3b (Chronic) Knee joint pain (Chronic) Degenerative joint disease of knee, left (Chronic) Benign essential hypertension (Chronic) Macular degeneration (Chronic) Migraine headache with aura (Chronic) Depression (Chronic) Morbid obesity (Chronic) Anemia, unspecified (Chronic) Social History Social History Smoking Status: Smoker current status unk If you are a former smoker, when did you quit? (Date/Year): 2010 Number of Years Smoked: 40 Second hand tobacco smoke exposure: Yes Do you dip or chew tobacco?: No Do you vape?: No Living arrangement: At home and Assisted living Living Condition: With caregiver(s) Support Person: Yes Physical Activity: None Level: Dependent Do you feel safe in your home environment?: Yes History of physical, verbal, emotional, or financial abuse?: No ETOH Use: None Frequency: Occasional Substance Use: denies use POLST Patient has POLST: No Results Lab Results Lab results reviewed: Yes 06/15/25 04:26 06/15/25 04:26 Exam Exam Vital Signs: Vital Signs x48h Temp Pulse Resp BP Pulse Ox O2 Flow Rate 06/16/25 08:29 36.7 C 86 22 167/64 H 93 3 Patient sensation is intact in her toes the splint was not removed as it is holding the fracture. Conclusion/Plan Problem List (1) Respiratory failure with hypoxia: Qualifiers: Chronicity: acute Qualified Code(s): J96.01 - Acute respiratory failure with hypoxia (2) Bimalleolar ankle fracture: Plan: The patient does have a bimalleolar ankle fracture and she does need an open reduction internal fixation medicine has cleared the patient for surgery and we are doing this on Saturday, June 16. Qualifiers: Encounter type: initial encounter Fracture type: closed Laterality: l eft Qualified Code(s): S82.842A - Displaced bimalleolar fracture of left lower leg, initial encounter for closed fracture (3) Urinary tract infection: Qualifiers: Hematuria presence: without hematuria Urinary tract infection type: a cute cystitis Qualified Code(s): N30.00 - Acute cystitis without hematuria (4) DDD (degenerative disc disease), lumbar: Qualifiers: Disc-related pain type: unspecified whether pain present Qualified Code(s): M51.369 - Other intervertebral disc degeneration, lumbar region without mention of lumbar back pain or lower extremity pain (5) Chronic kidney disease, stage 3b: (6) Benign essential hypertension: (7) Depression: Qualifiers: Depression Type: unspecified Qualified Code(s): F32.A - Depression, unspecified Lab Results Lab results reviewed: Yes 06/15/25 04:26 06/15/25 04:26
[2025-06-16 09:37] LABS: ABG PH 7.27 (7.35-7.45)
[2025-06-16 09:38] LABS: ABG BASE EXCESS 14.4 mmol/L (-2.0-3.0); ABG HCO3 41.5 mmol/L (22.0-26.0); ABG OXYGEN SATURATION 99 % (95-98); ABG PO2 101 mmHg (83-108)
[2025-06-16 09:41] LABS: ABG PCO2 90 mmHg (34-45); ABG TCO2 44.3 mmol/L (21.0-29.0)
--- NOTE | 2025-06-16 09:51 | CONSULTATION NOTE ---
Consultation Report: [facility] Active Problems All Active Problems (Updated 06/13/25 @ 14:33 by Barbara Irving MD) Urinary tract infection (Acute) Bimalleolar ankle fracture (Acute) Respiratory failure with hypoxia (Acute) Osteoporosis (Chronic) Thoracolumbar back pain (Chronic) Iron deficiency (Chronic) Vitamin B12 deficiency (Chronic) Degenerative joint disease of knee, right (Chronic) Postmenopausal (Chronic) DDD (degenerative disc disease), lumbar (Chronic) Chronic left hip pain (Chronic) History of knee replacement (Chronic) Financial insecurity (Chronic) Prediabetes (Chronic) Localized edema (Chronic) Fatigue (Chronic) Dysuria (Chronic) Chronic kidney disease, stage 3b (Chronic) Knee joint pain (Chronic) Degenerative joint disease of knee, left (Chronic) Benign essential hypertension (Chronic) Macular degeneration (Chronic) Migraine headache with aura (Chronic) Depression (Chronic) Morbid obesity (Chronic) Anemia, unspecified (Chronic) Social History Social History (Updated 06/16/25 @ 09:18 by Jimmy Shelby DO) Smoking Status: Smoker current status unk If you are a former smoker, when did you quit? (Date/Year): 2010 Number of Years Smoked: 40 Second hand tobacco smoke exposure: Yes Do you dip or chew tobacco?: No Do you vape?: No Living arrangement: At home and Assisted living Living Condition: With caregiver(s) Support Person: Yes Physical Activity: None Level: Dependent Home Mobility Equipment: Walker Do you feel safe in your home environment?: Yes History of physical, verbal, emotional, or financial abuse?: No ETOH Use: None Frequency: Occasional Substance Use: denies use POLST Patient has POLST: No Conclusion/Plan Problem List (1) Respiratory failure with hypoxia: Qualifiers: Chronicity: acute Qualified Code(s): J96.01 - Acute respiratory failure with hypoxia (2) Bimalleolar ankle fracture: Qualifiers: Encounter type: initial encounter Fracture type: closed Laterality: l eft Qualified Code(s): S82.842A - Displaced bimalleolar fracture of left lower leg, initial encounter for closed fracture (3) Urinary tract infection: Qualifiers: Hematuria presence: without hematuria Urinary tract infection type: a cute cystitis Qualified Code(s): N30.00 - Acute cystitis without hematuria (4) DDD (degenerative disc disease), lumbar: Qualifiers: Disc-related pain type: unspecified whether pain present Qualified Code(s): M51.369 - Other intervertebral disc degeneration, lumbar region without mention of lumbar back pain or lower extremity pain (5) Chronic kidney disease, stage 3b: (6) Benign essential hypertension: (7) Depression: Qualifiers: Depression Type: unspecified Qualified Code(s): F32.A - Depression, unspecified Lab Results Lab results reviewed: Yes 06/15/25 04:26 06/15/25 04:26 Meds/Allgy Home Medications Ambulatory Orders Medication Instructions Recorded Confirmed losartan 100 mg tablet 100 mg PO QDAY hypertension #90 04/12/25 06/13/25 tabs albuterol sulfate 90 mcg/actuation 2 puff inhalation Q ID PRN 05/05/25 06/13/25 aerosol inhaler (Ventolin HFA) shortness of breath or wheezing #8.5 grams alendronate 70 mg tablet 70 mg PO QWEEK #13 tabs 04/2706/13/25 lidocaine 5 % topical patch 1 patch topical BID Pain # 60 ea 05/13/25 06/13/25 duloxetine 30 mg capsule,delayed 30 mg PO QDAY depress ion #30 caps 05/31/25 06/13/25 release naproxen 500 mg tablet 500 mg PO BID #60 tabs 05/3106/13/25 Allergies Allergies Allergy/AdvReac Type Severity Reaction Status Date / Time lisinopril Allergy Severe Cough Verified 06/13/25 07:03 oxycodone (From Percocet) Allergy Severe Emesis Verified 06/13/25 07:03 Anesthesia Exam (Expanded) Exam General: Moderate distress and Other (lethargic) Respiratory: Lungs clear and Accessory muscle use Cardiovascular: Other (systolic murmur) Exam Exam Vital Signs: Vital Signs x48h Temp Pulse Resp BP Pulse Ox O2 Flow Rate 06/16/25 08:29 36.7 C 86 22 167/64 H 93 3 Pre-Anesthesia VS, & Labs Diagnosis Surgical Diagnosis:: Left ankle fracture Procedure Procedure: left ORIF ankle f Vitals Vital Signs: Temp Pulse Resp BP Pulse Ox O2 Flow Rate 36.7 C 86 22 167/64 H 93 3 06/16/25 08:29 06/16/25 08:29 06/16/25 08:29 06/16/25 08:29 06/16/25 08:29 06/16/25 08:29 Lab Results Current Lab Results: Laboratory Tests 06/16/25 09:23: Bld Gas Analysis Time 09, Sample Site RIGHT RADIAL, ABG pH 7.27 L, ABG pCO2 90 H*, ABG pO2 101, ABG HCO3 41.5 H, ABG Total CO2 44.3 H*, ABG O2 Saturation 99 H, ABG Base Excess 14.4 H, Emre Test POSITIVE, O2 Delivery Device NASAL CANNULA, O2 Liters/Min 3.00 06/15/25 04:26: WBC 7.0, RBC 3.98 L, Hgb 11.3 L, Hct 39.9, MCV 100.3 H, MCH 28.4, MCHC 28.3 L, RDW 13.4, Plt Count 304, MPV 9.8, Sodium 140, Potassium 4.5, Chloride 101, Carbon Dioxide 35 H, Anion Gap 4.0 L, BUN 38 H, Creatinine 1.3, E stimated GFR (MDRD) 39 L, Glucose 102, Calcium 9.6, Magnesium 2.2 06/14/25 05:30: WBC 7.9, RBC 3.84 L, Hgb 10.8 L, Hct 37.2, MCV 96.9, MCH 28.1, M CHC 29.0 L, RDW 13.2, Plt Count 329, MPV 9.7, Sodium 139, Potassium 4.7 H, Chloride 102, Carbon Dioxide 34 H, Anion Gap 3.0 L, BUN 37 H, Creatinine 1.1, E stimated GFR (MDRD) 48 L, Glucose 104, Calcium 9.5, Magnesium 2.0, Procalcitonin Immunoas 0.06 06/13/25 09:19: Troponin I High Sens 66.2 H* 06/13/25 07:58: WBC 9.2, RBC 4.53, Hgb 13.0, Hct 43.4, MCV 95.8, MCH 28.7, MCHC 30.0 L, RDW 13.2, Plt Count 358, MPV 9.6, Neut # (Auto) 7.7 H, Lymph # (Auto) 0.6 L, [place] # (Auto) 0.8, Eos # (Auto) 0.0, Baso # (Auto) 0.0, Absolute Nucleated RBC 0.04, Nucleated RBC % 0.4, VBG pH 7.310, VBG pCO2 65.9 H, VBG pO2 73.0 H, VBG HCO3 33.5 H, VBG Total CO2 35.5 H, VBG O2 Saturation 90.0 H, VBG Base Excess 7.0 H, Sodium 139, Potassium 4.4, Chloride 101, Carbon Dioxide 33 H, Anion Gap 5.0 L, BUN 40 H, Creatinine 1.4 H, Estimated GFR (MDRD) 36 L, Glucose 104, Lactic Acid 1.1, Calcium 10.4 H, Total Bilirubin 0.5, AST 18, ALT 18, Alkaline Phosphatase 114, Troponin I High Sens 76.3 H*, B-Natriuretic Peptide 682 H, Total Protein 7.8, Albumin 4.2, Globulin 3.6, Albumin/Globulin Ratio 1.2 Lab results reviewed: Yes 06/15/25 04:26 06/15/25 04:26
--- NOTE | 2025-06-16 10:02 | PROVIDER PROGRESS NOTE ---
Subjective Prog Note Date Prog Note Date: 06/16/25 Prog Note Time: 09:51 Subjective Subjective: Still with psychomotor slowing. Slow response times to everything I ask. Anesthesia was very concerned about this mental status and we did a blood gas. Blood gas shows her to be retaining CO2. She also has a murmur that anesthesia is concerned about. Echo done June 13 does not have any significant valvular heart disease but on the basis of the murmur and the blood gas surgeries being canceled today. She has no history of obstructive sleep apnea. No history of pulmonary hypertension. Current Medications Current Medications Current Medications: Current Medications Generic Name Dose Route Start Last Admin Trade Name Freq PRN Reason Stop Dose Admin Acetaminophen 650 mg 06/13/25 14:53 Acetaminophen 325 Mg Tablet PO Q4HR PRN Pain 1 to 4, or Fever Hydrocodone Bitart/Acetaminophen 1 tab 06/13/25 14:53 Hydrocod/Acetam 5/325 Mg Tablet PO Q4HR PRN Pain 5 to 7 Albuterol/Ipratropium 3 ml 06/13/25 15:00 06/16/25 08:09 Ipratropium/Albuterol 3 Ml Neb INH Not Given RTQID [facility]ON Ceftriaxone Sodium 1 gm 06/14/25 09:00 06/16/25 09:44 Ceftriaxone 1 Gm Vial IVP Not Given DAILY SHANNON Cyanocobalamin 500 mcg 06/15/25 09:00 06/16/25 09:44 Cyanocobalamin 500 Mcg Tablet PO Not Given DAILY [facility]ON Docusate Sodium 250 - 500 mg 06/15/25 09:00 06/16/25 09:44 Docusate Sodium 250 Mg Capsule PO Not Given DAILY SHANNON Duloxetine HCl 30 mg 06/14/25 09:00 06/16/25 09:45 Duloxetine 30 Mg Capsule PO Not Given DAILY [facility] Heparin Sodium (Porcine) 5,000 unit 06/14/25 09:00 06/16/25 09:45 Heparin 5,000 Unit/Ml Vial SUBQ Not Given BID SHANNON Losartan Potassium 100 mg 06/14/25 09:00 06/16/25 09:45 Losartan 50 Mg Tablet PO Not Given DAILY [facility] Morphine Sulfate 2 mg 06/13/25 14:53 Morphine 2 Mg/Ml Carpuject IVP Q2HR PRN Pain 8 to 10 Nystatin 1 applic 06/14/25 21:00 06/16/25 09:45 Nystatin Powder 15 Gm TOP Not Given BID [facility] Ondansetron HCl 4 mg 06/13/25 14:53 Ondansetron Odt 4 Mg Tablet TL Q6HR PRN Nausea / Vomiting Ondansetron HCl 4 mg 06/13/25 14:53 Ondansetron 4 Mg/2 Ml Vial IVP Q6HR PRN Nausea / Vomiting Polyethylene Glycol 17 gm 06/15/25 09:00 06/16/25 09:45 Polyethylene Glycol 3350 17 Gm Packet PO Not Given DAILY [facility] Multivit/Folic Acid/Iron 1 tab 06/14/25 12:00 06/16/25 09:43 Vitamin Tablet PO Not Given DAILYWM [facility] Senna 8.6 - 17.2 mg 06/15/25 09:00 06/16/25 09:46 Senna 8.6 Mg Tablet PO Not Given DAILY [facility] Sodium Chloride 10 ml 06/13/25 14:53 06/15/25 08:45 Sodium Chloride Flush 0.9% 10 Ml Syringe IVP 10 ml PRN PRN Administration NEEDED PER PROVIDER ORDERS Sodium Chloride 10 ml 06/13/25 17:00 06/16/25 09:46 Sodium Chloride Flush 0.9% 10 Ml Syringe IVP Not Given 0100,0900,1700 [facility] Zinc Oxide 113 gm 06/14/25 11:33 Cod Liver Oil/Zinc Oxide 113 Gm Tube TOP PRN PRN Skin Care Objective Vital Signs/Intake & Output Reviewed Vital Signs: Yes Vital Signs: Vital Signs x48h Temp Pulse Resp BP Pulse Ox O2 Flow Rate 06/16/25 08:29 36.7 C 86 22 167/64 H 93 3 Intake & Output: Intake & Output 06/13/25 06/14/25 06/15/25 06/16/25 23:59 23:59 23:59 23:59 Intake Total 220 / 220 1000 / 1000 1115 / 1115 Output Total 250 / 250 1050 / 1050 450 / 450 300 / 300 Balance -30 / -30 -50 / -50 665 / 665 -300 / -300 Weight (kg) 97.5 kg Objective General Appearance: positive No acute distress and Lethargic (Elderly female with dyed red hair, sleeping on her right side, does wake up to my voice and rolls on her back to answer my questions but with same psychomotor slowing of yesterday to today. Able to answer yes no.) Eyes Bilateral: positive PERRL and EOMI ENT: positive No signs of dehydration Neck: positive Thyroid nml and No JVD; negative Stiff neck or Carotid bruit Respiratory: positive No respiratory distress and Other (Slow, mild use of abdominal wall muscles to take of breath. But not tachypneic.); negative Wheezes, Rales or Rhonchi Cardiovascular: positive Regular rate & rhythm, No gallop and Systolic murmur Abdomen: positive Non-tender, No organomegaly, Nml bowel sounds and No distention Skin: positive Warm, Dry and Pallor Extremities: positive Non-tender, Full ROM, Nml appearance and No pedal edema Neurologic/Psychiatric: positive CN's nml (2-12), Motor nml, Disoriented to place, Disoriented to time, Weakness and Slurred/abnml speech (Speech is intact but slow, slow verbal response time to my questions); negative Mood/affect nml Lab Results 06/15/25 04:26 06/15/25 04:26 Other Labs: Lab Results x24hrs 06/16/25 Range/Units 09:23 Bld Gas Analysis Time 0929 Sample Site RIGHT RADIAL ABG pH 7.27 L (7.35-7.45) ABG pCO2 90 H* (34-45) mmHg ABG pO2 101 (83-108) mmHg ABG HCO3 41.5 H (22.0-26.0) mmol/L ABG Total CO2 44.3 H* (21.0-29.0) mmol/L ABG O2 Saturation 99 H (95-98) % ABG Base Excess 14.4 H (-2.0-3.0) mmol/L Emre Test POSITIVE O2 Delivery Device NASAL CANNULA O2 Liters/Min 3.00 LPM Assessment/Plan Problem List (1) Obtundation: Impression: Yesterday I noticed psychomotor slowing when speaking. Today she continues to have the same changes. Anesthesia feels that she has a new murmur. -Today we did a blood gas and her blood gas on 3 L nasal cannula has a pH of 7.27. pCO2 90. [id number]. Bicarb 41.5. Base excess 14.4. So she has a respiratory acidosis with compensated metabolic alkalosis. Anesthesia and I discussed the case this morning. They are very concerned about a murmur. We did discuss the echo that was unremarkable. But there is no clear reason for pCO2 increase or her hypoxia. Other than central apnea. Which she has not had before. Surgical case canceled. I plan to do a CT of the head today. Check EKG and troponin. (2) Respiratory failure with hypoxia: Impression: Patient presented with hypoxia. She was at her [facility] and found down for unknown length of time. EMS found her 02 sat to be 60% on room air.. She was as low as 71% on room air here in our ER. She was placed on 4 L with improvement to 97%. CTA showed no acute PE, no pneumonia, no CHF with marked chronic elevation of the right hemidiaphragm with small superimposed right pleural effusion. There was resultant subtotal collapse of the right lower lobe, as well as numerous healing left rib fractures (which patient does not recall ever having). Initial CXR said CHF but the CT reading directly contradicted that. She doesn't have a fever, chills, or elevated WBC but did have a cough and some congestion 06/14. Previous hospitalist did procalcitonin and was 0.06. Patient has no underlying lung disease. She was recently prescribed albuterol inhaler as needed. Continue DuoNebs RT 4 times daily to help. Some cardiomegaly noted. proBNP slightly elevated at 682. She did have a troponinemia 76.3 which was downtrending to 66.2. No active chest pain. Echo showed pulmonary artery systolic pressure is moderately increased - she may have a component of pulmonary hypertension -Today we did a blood gas and her blood gas on 3 L nasal cannula has a pH of 7.27. pCO2 90. [id number]. Bicarb 41.5. Base excess 14.4. So she has a respiratory acidosis with compensated metabolic alkalosis. Plan is for CPAP. She does not need much oxygenation but more blowing off her CO2. Will see if this helps. Qualifiers: Chronicity: acute Qualified Code(s): J96.01 - Acute respiratory failure with hypoxia (3) Bimalleolar ankle fracture: Impression: Patient presented with mechanical fall. Had immediate pain in her left ankle following the fall. X-ray shows bimalleolar fractures, mild disruption of the ankle mortise. Orthopedic surgery was consulted, and are planning for surgery while inpatient, likely on Saturday (today is Saturday), pending improvement of her pulmonary status. PT evaluation done today and preliminary report is deconditioning. May need SNF after surgery. I reviewed the surgical risk calculator and she has a 9.3% chance of complication or 7.7% chance of any complication. This includes pneumonia, cardiac, venous thromboembolism. There is a 79% predictability she will need to go to a nursing or rehab facility. They also predict she will have a 25% of postoperative delirium.I will have PT evaluate her for possible placement to [facility] facility at discharge after her ankle repair. - With today's finding of hypoxia and hypercarbia, the patient's case has been canceled. Continue pain management with Tylenol as needed, oxycodone for moderate pain, morphine for severe pain.So far she has only had pain medicine on the first day she was here. She has not had any more sedating medication since then. Qualifiers: Encounter type: initial encounter Fracture type: closed Laterality: l eft Qualified Code(s): S82.842A - Displaced bimalleolar fracture of left lower leg, initial encounter for closed fracture (4) Urinary tract infection: Impression: UA positive, some dysuria and urinary frequency noted. Continue IV Rocephin at this time until speciation. Today is day #3/5 Qualifiers: Hematuria presence: without hematuria Urinary tract infection type: a cute cystitis Qualified Code(s): N30.00 - Acute cystitis without hematuria (5) DDD (degenerative disc disease), lumbar: Impression: Continue pain management as needed. She is controlled for now as long as she is at bedrest. She received IV MS on 06/13 and two doses of Vicodin that day. None since. Qualifiers: Disc-related pain type: unspecified whether pain present Qualified Code(s): M51.369 - Other intervertebral disc degeneration, lumbar region without mention of lumbar back pain or lower extremity pain (6) Chronic kidney disease, stage 3b: Impression: Creatinine around baseline of 1.2-1.4. Avoid nephrotoxic agents at this time. Continue to trend. (7) Benign essential hypertension: Impression: Home medication continued, losartan. Previous 48 hour Systolic is 132-147. May be acutely elevated due to acute pain and shortness of breath.This morning her blood pressure was 167/64. I do not think this is high enough for me to change her medicines yet. (8) Depression: Impression: Continue duloxetine. Qualifiers: Depression Type: unspecified Qualified Code(s): F32.A - Depression, unspecified
--- NOTE | 2025-06-16 10:06 | ANESTHESIA PROCEDURE NOTE ---
Pre-Anesthesia VS, & Labs Diagnosis Surgical Diagnosis:: Left ankle fracture Procedure Procedure: ORIF left ankle fracture Vitals Vital Signs: Temp Pulse Resp BP Pulse Ox O2 Flow Rate 36.5 C 104 H 24 138/52 H 92 4 06/16/25 17:18 06/16/25 19:40 06/16/25 19:40 06/16/25 17:18 06/16/25 17:18 06/16/25 19:40 NPO NPO: >8 hours Is Patient ?: Not Applicable Lab Results Current Lab Results: Laboratory Tests 06/16/25 09:23: Bld Gas Analysis Time 928, Sample Site RIGHT RADIAL, ABG pH 7.27 L, ABG pCO2 90 H*, ABG pO2 101, ABG HCO3 41.5 H, ABG Total CO2 44.3 H*, ABG O2 Saturation 99 H, ABG Base Excess 14.4 H, Emre Test POSITIVE, O2 Delivery Device NASAL CANNULA, O2 Liters/Min 3.00 06/15/25 04:26: WBC 7.0, RBC 3.98 L, Hgb 11.3 L, Hct 39.9, MCV 100.3 H, MCH 28.4, MCHC 28.3 L, RDW 13.4, Plt Count 304, MPV 9.8, Sodium 140, Potassium 4.5, Chloride 101, Carbon Dioxide 35 H, Anion Gap 4.0 L, BUN 38 H, Creatinine 1.3, E stimated GFR (MDRD) 39 L, Glucose 102, Calcium 9.6, Magnesium 2.2 06/14/25 05:30: WBC 7.9, RBC 3.84 L, Hgb 10.8 L, Hct 37.2, MCV 96.9, MCH 28.1, M CHC 29.0 L, RDW 13.2, Plt Count 329, MPV 9.7, Sodium 139, Potassium 4.7 H, Chloride 102, Carbon Dioxide 34 H, Anion Gap 3.0 L, BUN 37 H, Creatinine 1.1, E stimated GFR (MDRD) 48 L, Glucose 104, Calcium 9.5, Magnesium 2.0, Procalcitonin Immunoas 0.06 06/13/25 09:19: Troponin I High Sens 66.2 H* 06/13/25 07:58: WBC 9.2, RBC 4.53, Hgb 13.0, Hct 43.4, MCV 95.8, MCH 28.7, MCHC 30.0 L, RDW 13.2, Plt Count 358, MPV 9.6, Neut # (Auto) 7.7 H, Lymph # (Auto) 0.6 L, [place] # (Auto) 0.8, Eos # (Auto) 0.0, Baso # (Auto) 0.0, Absolute Nucleated RBC 0.04, Nucleated RBC % 0.4, VBG pH 7.310, VBG pCO2 65.9 H, VBG pO2 73.0 H, VBG HCO3 33.5 H, VBG Total CO2 35.5 H, VBG O2 Saturation 90.0 H, VBG Base Excess 7.0 H, Sodium 139, Potassium 4.4, Chloride 101, Carbon Dioxide 33 H, Anion Gap 5.0 L, BUN 40 H, Creatinine 1.4 H, Estimated GFR (MDRD) 36 L, Glucose 104, Lactic Acid 1.1, Calcium 10.4 H, Total Bilirubin 0.5, AST 18, ALT 18, Alkaline Phosphatase 114, Troponin I High Sens 76.3 H*, B-Natriuretic Peptide 682 H, Total Protein 7.8, Albumin 4.2, Globulin 3.6, Albumin/Globulin Ratio 1.2 Lab results reviewed: Yes 06/15/25 04:26 06/15/25 04:26 Meds/Allgy Home Medications Ambulatory Orders Medication Instructions Recorded Confirmed losartan 100 mg tablet 100 mg PO QDAY hypertension #90 04/12/25 06/13/25 tabs albuterol sulfate 90 mcg/actuation 2 puff inhalation Q ID PRN 05/05/25 06/13/25 aerosol inhaler (Ventolin HFA) shortness of breath or wheezing #8.5 grams alendronate 70 mg tablet 70 mg PO QWEEK #13 tabs 04/2706/13/25 lidocaine 5 % topical patch 1 patch topical BID Pain # 60 ea 05/13/25 06/13/25 duloxetine 30 mg capsule,delayed 30 mg PO QDAY depress ion #30 caps 05/31/25 06/13/25 release naproxen 500 mg tablet 500 mg PO BID #60 tabs 05/3106/13/25 Allergies Allergies Allergy/AdvReac Type Severity Reaction Status Date / Time lisinopril Allergy Severe Cough Verified 06/13/25 07:03 oxycodone (From Percocet) Allergy Severe Emesis Verified 06/13/25 07:03 [facility] Active Problems All Active Problems Systolic murmur (Acute) Obtundation (Acute) Urinary tract infection (Acute) Bimalleolar ankle fracture (Acute) Respiratory failure with hypoxia (Acute) Osteoporosis (Chronic) Thoracolumbar back pain (Chronic) Iron deficiency (Chronic) Vitamin B12 deficiency (Chronic) Degenerative joint disease of knee, right (Chronic) Postmenopausal (Chronic) DDD (degenerative disc disease), lumbar (Chronic) Chronic left hip pain (Chronic) History of knee replacement (Chronic) Financial insecurity (Chronic) Prediabetes (Chronic) Localized edema (Chronic) Fatigue (Chronic) Dysuria (Chronic) Chronic kidney disease, stage 3b (Chronic) Knee joint pain (Chronic) Degenerative joint disease of knee, left (Chronic) Benign essential hypertension (Chronic) Macular degeneration (Chronic) Migraine headache with aura (Chronic) Depression (Chronic) Morbid obesity (Chronic) Anemia, unspecified (Chronic) Social History Social History (Updated 06/16/25 @ 09:18 by Jimmy Shelby DO) Smoking Status: Smoker current status unk If you are a former smoker, when did you quit? (Date/Year): 2010 Number of Years Smoked: 40 Second hand tobacco smoke exposure: Yes Do you dip or chew tobacco?: No Do you vape?: No Living arrangement: At home and Assisted living Living Condition: With caregiver(s) Support Person: Yes Physical Activity: None Level: Dependent Home Mobility Equipment: Walker Do you feel safe in your home environment?: Yes History of physical, verbal, emotional, or financial abuse?: No ETOH Use: None Frequency: Occasional Substance Use: denies use POLST Patient has POLST: No Anesthesia Exam (Expanded) Exam General: Other (lethargic) Respiratory: Accessory muscle use Cardiovascular: Other (systolic murmur ) Mental/Cognitive Status: Lethargic Exam Exam Vital Signs: Vital Signs x48h Temp Pulse Pulse Resp BP Pulse Ox O2 Flow Rate 06/16/25 19:40 104 H 24 4 06/16/25 19:40 4 06/16/25 17:18 36.5 C 103 H 20 138/52 H 92 2 Plan Problem List (1) Respiratory failure with hypoxia: Plan: Patient has developed acute on chronic respiratory acidosis, hypercarbia and is lethargic. Today, she has a new, loud systolic murmur. She had an ECHO on 06/13 with an EF of 70% and did not show any valvular heart disease, but cardiac exam by hospitalist on 06/15 documented no cardiac murmur. This case was discussed with the orthopedic surgeon and he recommended waiting until patient is more medically stable to fix her ankle. I agree, we should delay the elective ORIF of her Left ankle. Qualifiers: Chronicity: acute Qualified Code(s): J96.01 - Acute respiratory failure with hypoxia Plan Anesthesia Type: Other (Discussed with surgeon and will delay the ORIF until patient's medical status is improved. ) Consent for Procedure(s) Verified and Reviewed: No Code Status: Do Not Attempt Resuscitation ASA Classification ASA classification: 4-Incapacitating disease Is this case an emergency?: No
--- NOTE | 2025-06-17 07:52 | POST OP PROGRESS NOTE ---
Subjective General Admit Date: 06/13/25 Ortho Surgical Progress Note Problem List Problem List: This note dictated today's for yesterday's visit on 06/16/2025 around 11 AM. I went to the patient's room with the anesthesiologist to consent the patient and we both have concerns about the patient's cardiac condition. It seems that she had an echocardiogram not too long ago that was normal however she has a new onset murmur that we do not feel has been properly worked up and we cannot even consent the patient as she is not responsive to us at this time. Due to the uncertainty of the heart condition we have canceled the ankle surgery for today. It should be noted that under normal conditions I would do this ankle fracture typically about 1 week after surgery when the swelling goes down and it is only been about 5 days since the injury so I think it is okay to pursue this on an outpatient basis or even later on on an inpatient basis if the patient's medical status improves. I would consider transferring the patient to a higher facility given the new onset cardiac symptoms. Exam Exam Vital Signs: Vital Signs x48h Temp Pulse Pulse Resp BP Pulse Ox O2 Flow Rate 06/17/25 06:50 2 06/17/25 06:50 91 20 06/17/25 01:49 36.7 C 82 19 150/65 H 93 2
--- NOTE | 2025-06-17 16:33 | PROVIDER PROGRESS NOTE ---
Subjective Prog Note Date Prog Note Date: 06/17/25 Prog Note Time: 16:31 Subjective Subjective: I treated her hypercarbia with CPAP yesterday. There is been some improvement today and that she is more awake, more interactive but still slow to respond. I queried her more about her past history of apnea, or any history of snoring, and she says she does not remember anything. I asked her about that day when she fell. Was she having problems that day that caused her to fall and she says that she honestly cannot remember anything what happened. She does not remember that day. I reviewed her clinic charts with Evelia Lynn and Griselda Maria. They seem to describe an elderly female with degenerative disc disease, osteoporosis, but no psychomotor slowing. They describe a fairly sedentary female but no psychomotor slowing or lethargy or obtundation. She is described as alert and pleasant. No acute distress. She had been started on duloxetine. Her last visit was May 06 when she had a rib fracture on the right. It was a routine 3- month review. Current Medications Current Medications Current Medications: Current Medications Generic Name Dose Route Start Last Admin Trade Name Freq PRN Reason Stop Dose Admin Acetaminophen 650 mg 06/13/25 14:53 Acetaminophen 325 Mg Tablet PO Q4HR PRN Pain 1 to 4, or Fever Hydrocodone Bitart/Acetaminophen 1 tab 06/13/25 14:53 Hydrocod/Acetam 5/325 Mg Tablet PO Q4HR PRN Pain 5 to 7 Albuterol/Ipratropium 3 ml 06/13/25 15:00 06/17/25 16:06 Ipratropium/Albuterol 3 Ml Neb INH Not Given RTQID SHANNON Ceftriaxone Sodium 1 gm 06/14/25 09:00 06/17/25 08:42 Ceftriaxone 1 Gm Vial IVP 1 gm DAILY SHANNON Administration Cyanocobalamin 500 mcg 06/15/25 09:00 06/17/25 08:42 Cyanocobalamin 500 Mcg Tablet PO 500 mcg DAILY SHANNON Administration Docusate Sodium 250 - 500 mg 06/15/25 09:00 06/17/25 08:42 Docusate Sodium 250 Mg Capsule PO 250 mg DAILY SHANNON Administration Duloxetine HCl 30 mg 06/14/25 09:00 06/17/25 08:42 Duloxetine 30 Mg Capsule PO 30 mg DAILY SHANNON Administration Heparin Sodium (Porcine) 5,000 unit 06/14/25 09:00 06/17/25 08:42 Heparin 5,000 Unit/Ml Vial SUBQ 5,000 unit BID SHANNON Administration Losartan Potassium 100 mg 06/14/25 09:00 06/17/25 08:42 Losartan 50 Mg Tablet PO 100 mg DAILY SHANNON Administration Morphine Sulfate 2 mg 06/13/25 14:53 Morphine 2 Mg/Ml Carpuject IVP Q2HR PRN Pain 8 to 10 Nystatin 1 applic 06/14/25 21:00 06/17/25 08:43 Nystatin Powder 15 Gm TOP 1 applic BID SHANNON Administration Ondansetron HCl 4 mg 06/13/25 14:53 Ondansetron Odt 4 Mg Tablet TL Q6HR PRN Nausea / Vomiting Ondansetron HCl 4 mg 06/13/25 14:53 Ondansetron 4 Mg/2 Ml Vial IVP Q6HR PRN Nausea / Vomiting Polyethylene Glycol 17 gm 06/15/25 09:00 06/17/25 08:43 Polyethylene Glycol 3350 17 Gm Packet PO Not Given DAILY SHANNON Multivit/Folic Acid/Iron 1 tab 06/14/25 12:00 06/17/25 08:42 Vitamin Tablet PO 1 tab DAILYWM SHANNON Administration Senna 8.6 - 17.2 mg 06/15/25 09:00 06/17/25 08:42 Senna 8.6 Mg Tablet PO 8.6 mg DAILY SHANNON Administration Sodium Chloride 10 ml 06/13/25 14:53 06/15/25 08:45 Sodium Chloride Flush 0.9% 10 Ml Syringe IVP 10 ml PRN PRN Administration NEEDED PER PROVIDER ORDERS Sodium Chloride 10 ml 06/13/25 17:00 06/17/25 08:43 Sodium Chloride Flush 0.9% 10 Ml Syringe IVP 10 ml 0100,0900,1700 SHANNON Administration Zinc Oxide 113 gm 06/14/25 11:33 Cod Liver Oil/Zinc Oxide 113 Gm Tube TOP PRN PRN Skin Care Objective Vital Signs/Intake & Output Reviewed Vital Signs: Yes Vital Signs: Vital Signs x48h Temp Pulse Pulse Resp BP Pulse Ox O2 Flow Rate 06/17/25 15:49 36.7 C 89 21 155/77 H 94 3 06/17/25 11:15 84 20 3 06/17/25 08:35 36.7 C 86 20 134/67 H 90 L 3 Intake & Output: Intake & Output 06/14/25 06/15/25 06/16/25 06/17/25 23:59 23:59 23:59 23:59 Intake Total 1000 / 1000 1115 / 1115 60 / 60 800 / 800 Output Total 1050 / 1050 450 / 450 300 / 300 400 / 400 Balance -50 / -50 665 / 665 -240 / -240 400 / 400 Objective General Appearance: positive No acute distress (5 feet 2 inch tall elderly female, 97.5 kg.) and Other (Asleep this morning and required touch of her shoulder and calling her name and a loud voice for her to wake up. But she seemed lethargic so I came back this afternoon. She is sitting up in bed. Watching TV. But not really paying attention. Eyes are open and she converses spontaneously with me ) Eyes Bilateral: positive PERRL and EOMI ENT: positive No signs of dehydration Neck: positive No JVD; negative Stiff neck or Carotid bruit Respiratory: positive Chest non-tender, No respiratory distress, Breath sounds nml and Other (Slow and unlabored respiration. Shallow.) Cardiovascular: positive Regular rate & rhythm and Systolic murmur Abdomen: positive Non-tender, No organomegaly, Nml bowel sounds and Other (She is eating 50 to 75% of her food.Bowel protocol initiated on the . no BM since ) Skin: positive Warm, Dry and Pallor Extremities: positive Non-tender, Full ROM and Other (Left ankle and calf are tightly wrapped with Ricardo wrap. The ankle is brace enough that she cannot fully extend or plantarflex. Pain is controlled and she has not had any pain medicine since the ) Neurologic/Psychiatric: positive Oriented x3, CN's nml (2-12) and Motor nml Lab Results 06/15/25 04:26 06/15/25 04:26 Assessment/Plan Problem List (1) Respiratory failure with hypoxia: Impression: Patient presented with hypoxia. She was at her [facility] and found down for unknown length of time. EMS found her 02 sat to be 60% on room air.. She was as low as 71% on room air here in our ER. She was placed on 4 L with improvement to 97%. CTA showed no acute PE, no pneumonia, no CHF with marked chronic elevation of the right hemidiaphragm with small superimposed right pleural effusion. There was resultant subtotal collapse of the right lower lobe, as well as numerous healing left rib fractures (which patient does not recall ever having). Initial CXR said CHF but the CT reading directly contradicted that. She doesn't have a fever, chills, or elevated WBC but did have a cough and some congestion 06/14. Previous hospitalist did procalcitonin and was 0.06. Patient has no underlying lung disease. She was recently prescribed albuterol inhaler as needed. Continue DuoNebs RT 4 times daily to help. Some cardiomegaly noted. proBNP slightly elevated at 682. She did have a troponinemia 76.3 which was downtrending to 66.2. No active chest pain. Echo showed pulmonary artery systolic pressure is moderately increased - she may have a component of pulmonary hypertension. - On the day of planned surgery, June 16, anesthesia did an exam and found her to have a systolic murmur. Due to her sedation and murmur, they did not feel they could move forward safely for the case. -I ordered a blood gas and her blood gas on 3 L nasal cannula has a pH of 7.27. pCO2 90. [id number]. Bicarb 41.5. Base excess 14.4. So she has a respiratory acidosis with compensated metabolic alkalosis.I put her on CPAP. Other than treating her hypercarbia, I do not know what more we can do for a systolic murmur heard on exam. An echocardiogram shows that the aortic valve is normal. The mitral valve is calcified but no mitral stenosis or mitral regurgitation not significant. There is no pulmonic valve stenosis. RVSP is minimally elevated at 45. If we are going to have to definitively identify where the murmur is coming from, this patient may have to be evaluated by cardiology prior to surgery. Which would mean that I would have to discharge her to her home situation or a respite alf facility with outpatient workup and then return for surgery. Qualifiers: Chronicity: acute Qualified Code(s): J96.01 - Acute respiratory failure with hypoxia (2) Obtundation: Impression: 06/15 I noticed psychomotor slowing when speaking. 06/16 she continued to have the same changes. Anesthesia feels that she has a new murmur. -Blood gas and her blood gas on 3 L nasal cannula has a pH of 7.27. pCO2 90. [id number]. Bicarb 41.5. Base excess 14.4. So she has a respiratory acidosis with compensated metabolic alkalosis. Today she is responsive, alert to person, place, but not time. Has to think about some of her answers. But she is more alert than she has been the last few days. Her sedation is not due Drugs, but most likely hypercarbia. But the question is why she with hypercarbia. Could you have had a stroke even though she has no focal deficits? I have ordered an MRI today (3) Bimalleolar ankle fracture: Impression: Patient presented with mechanical fall. She says she does not remember why she fell. It has been a few days and she says that she really cannot remember what happened that day at all. Had immediate pain in her left ankle following the fall. X-ray shows bimalleolar fractures, mild disruption of the ankle mortise. Orthopedic surgery was consulted, and are planning for surgery while inpatient, likely on Saturday (today is Saturday), pending improvement of her pulmonary status. PT evaluation done today and preliminary report is deconditioning. May need SNF after surgery. I reviewed the surgical risk calculator and she has a 9.3% chance of complication or 7.7% chance of any complication. This includes pneumonia, cardiac, venous thromboembolism. There is a 79% predictability she will need to go to a nursing or rehab facility. They also predict she will have a 25% of postoperative delirium.I will have PT evaluate her for possible placement to alf facility at discharge after her ankle repair. - With finding of hypoxia and hypercarbia, the patient's case has been canceled. Continue pain management with Tylenol as needed, oxycodone for moderate pain, morphine for severe pain.So far she has only had pain medicine on the first day she was here. She has not had any more sedating medication since then. Qualifiers: Encounter type: initial encounter Fracture type: closed Laterality: l eft Qualified Code(s): S82.842A - Displaced bimalleolar fracture of left lower leg, initial encounter for closed fracture (4) Urinary tract infection: Impression: UA positive, some dysuria and urinary frequency noted. Continue IV Rocephin at this time until speciation. Today is day #4/5 Qualifiers: Hematuria presence: without hematuria Urinary tract infection type: a cute cystitis Qualified Code(s): N30.00 - Acute cystitis without hematuria (5) DDD (degenerative disc disease), lumbar: Impression: Continue pain management as needed. She is controlled for now as long as she is at bedrest. She received IV MS on 06/13 and two doses of Vicodin that day. None since. Qualifiers: Disc-related pain type: unspecified whether pain present Qualified Code(s): M51.369 - Other intervertebral disc degeneration, lumbar region without mention of lumbar back pain or lower extremity pain (6) Chronic kidney disease, stage 3b: Impression: Creatinine around baseline of 1.2-1.4. Avoid nephrotoxic agents at this time. Continue to trend. (7) Benign essential hypertension: Impression: Home medication continued, losartan. Previous 48 hour Systolic is 132-147. May be acutely elevated due to acute pain and shortness of breath.This morning her blood pressure was 155/77. I do not think this is high enough for me to change her medicines yet. (8) Depression: Impression: Continue duloxetine. Qualifiers: Depression Type: unspecified Qualified Code(s): F32.A - Depression, unspecified
--- NOTE | 2025-06-17 18:31 | MRI Report ---
PROCEDURE: MRI Brain WO INDICATIONS: obtudation w hx of fall, CT neg TECHNIQUE: Multisequence MRI of the brain was performed without intravenous contrast. COMPARISON: None. FINDINGS: Image quality: Excellent. CSF Spaces: Basal cisterns are patent. No extra-axial fluid collections. Ventricles are normal in size and shape. Brain: No intracranial masses or hemorrhage. Steen/white matter interface is normal. Brainstem appears normal. Diffusion-weighted images demonstrate no acute ischemic insult. No chronic ischemic insults. Age-related volume loss and moderate to severe small vessel ischemic change. Normal intravascular flow voids are present. Skull and face: Calvarium has normal marrow signal. Orbits appear normal. Sinuses: Sinuses and mastoids are clear. IMPRESSION: 1. Age-related volume loss and moderate to severe small vessel ischemic change. 2. No acute intracranial process. Reviewed by: Julio Cesar Major MD on 06/17/2025 6:29 PM PDT Approved by: Julio Cesar Major MD on 06/17/2025 6:29 PM PDT Station ID: [id number]
[2025-06-18] MEDS: HYDROcod/ACETAM 5/325 MG TABLET PO PRN (05:01)
[2025-06-18 08:10] LABS: VBG PH 7.376 (7.31-7.41)
[2025-06-18 08:11] LABS: VBG BASE EXCESS 18.1 mmol/L (-2 - +2); VBG PCO2 73.6 mmHg (41-51); VBG PO2 89.1 mmHg (25-47); VBG TOTAL CO2 45.7 mmol/L (24-29)
[2025-06-18 08:12] LABS: HCT - HEMATOCRIT 39.3 % (37.0-47.0); HGB - HEMOGLOBIN 11.2 g/dL (12.0-16.0); MEAN PLATELET VOLUME 9.7 fL (7.9-10.8); PLT - PLATELET COUNT 306.0 10^3/uL (130-450); RED CELL DISTRIBUTION WIDTH 13.5 % (12.0-15.0)
[2025-06-18 08:43] LABS: BUN - BLOOD UREA NITROGEN 18.0 mg/dL (6-20); CARBON DIOXIDE - CO2 38.0 mmol/L (21-32); CREATININE 0.7 mg/dL (0.6-1.3); GFR - MDRD 80.0 (>89)
--- NOTE | 2025-06-18 09:45 | PROVIDER PROGRESS NOTE ---
Subjective Subjective Subjective: This morning, patient is alert and oriented x 1-2. She is very lethargic. She is falling asleep midsentence. She states that she has never formally been diagnosed with sleep apnea before nor if she ever uses CPAP machine. Her granddaughter is at bedside; she states that she is to care for her prior to her moving into an assisted living facility. She has noted a gradual decline in her functional status over the last few months, partially due to her degenerative disc disease and her increasing immobility. Jazmyne states her pain is pretty well-controlled overall. She has not been moving much, nor getting out of bed. Current Medications Current Medications Current Medications: Current Medications Generic Name Dose Route Start Last Admin Trade Name Freq PRN Reason Stop Dose Admin Acetaminophen 650 mg 06/13/25 14:53 Acetaminophen 325 Mg Tablet PO Q4HR PRN Pain 1 to 4, or Fever Hydrocodone Bitart/Acetaminophen 1 tab 06/13/25 14:53 06/18/25 05:01 Hydrocod/Acetam 5/325 Mg Tablet PO 1 tab Q4HR PRN Administration Pain 5 to 7 Albuterol/Ipratropium 3 ml 06/13/25 15:00 06/18/25 07:49 Ipratropium/Albuterol 3 Ml Neb INH Not Given RTQID SHANNON Ceftriaxone Sodium 1 gm 06/14/25 09:00 06/18/25 08:30 Ceftriaxone 1 Gm Vial IVP 1 gm DAILY SHANNON Administration Cyanocobalamin 500 mcg 06/15/25 09:00 06/18/25 08:30 Cyanocobalamin 500 Mcg Tablet PO 500 mcg DAILY SHANNON Administration Docusate Sodium 250 - 500 mg 06/15/25 09:00 06/18/25 08:31 Docusate Sodium 250 Mg Capsule PO 250 mg DAILY SHANNON Administration Duloxetine HCl 30 mg 06/14/25 09:00 06/18/25 08:30 Duloxetine 30 Mg Capsule PO 30 mg DAILY SHANNON Administration Heparin Sodium (Porcine) 5,000 unit 06/14/25 09:00 06/18/25 08:30 Heparin 5,000 Unit/Ml Vial SUBQ 5,000 unit BID SHANNON Administration Losartan Potassium 100 mg 06/14/25 09:00 06/18/25 08:31 Losartan 50 Mg Tablet PO 100 mg DAILY SHANNON Administration Morphine Sulfate 2 mg 06/13/25 14:53 Morphine 2 Mg/Ml Carpuject IVP Q2HR PRN Pain 8 to 10 Nystatin 1 applic 06/14/25 21:00 06/18/25 08:32 Nystatin Powder 15 Gm TOP 1 applic BID SHANNON Administration Ondansetron HCl 4 mg 06/13/25 14:53 Ondansetron Odt 4 Mg Tablet TL Q6HR PRN Nausea / Vomiting Ondansetron HCl 4 mg 06/13/25 14:53 Ondansetron 4 Mg/2 Ml Vial IVP Q6HR PRN Nausea / Vomiting Polyethylene Glycol 17 gm 06/15/25 09:00 06/18/25 08:32 Polyethylene Glycol 3350 17 Gm Packet PO Not Given DAILY SHANNON Multivit/Folic Acid/Iron 1 tab 06/14/25 12:00 06/18/25 08:30 Vitamin Tablet PO 1 tab DAILYWM SHANNON Administration Senna 8.6 - 17.2 mg 06/15/25 09:00 06/18/25 08:31 Senna 8.6 Mg Tablet PO 8.6 mg DAILY SHANNON Administration Sodium Chloride 10 ml 06/13/25 14:53 06/15/25 08:45 Sodium Chloride Flush 0.9% 10 Ml Syringe IVP 10 ml PRN PRN Administration NEEDED PER PROVIDER ORDERS Sodium Chloride 10 ml 06/13/25 17:00 06/18/25 08:31 Sodium Chloride Flush 0.9% 10 Ml Syringe IVP 10 ml 0100,0900,1700 SHANNON Administration Zinc Oxide 113 gm 06/14/25 11:33 Cod Liver Oil/Zinc Oxide 113 Gm Tube TOP PRN PRN Skin Care Objective Vital Signs/Intake & Output Reviewed Vital Signs: Yes Vital Signs: Vital Signs x48h O2 Flow Rate 06/18/25 07:49 4 Intake & Output: Intake & Output 06/15/25 06/16/25 06/17/25 06/18/25 23:59 23:59 23:59 23:59 Intake Total 1115 / 1115 60 / 60 1400 / 1400 50 / 50 Output Total 450 / 450 300 / 300 750 / 750 300 / 300 Balance 665 / 665 -240 / -240 650 / 650 -250 / -250 Objective General Appearance: positive No acute distress (5 feet 2 inch tall elderly female, 97.5 kg.) Eyes Bilateral: positive PERRL and EOMI ENT: positive No signs of dehydration Neck: positive No JVD; negative Stiff neck or Carotid bruit Respiratory: positive Chest non-tender, No respiratory distress, Breath sounds nml and Other (Slow and unlabored respiration. Shallow.) Cardiovascular: positive Regular rate & rhythm and Systolic murmur Abdomen: positive Non-tender, No organomegaly, Nml bowel sounds and Other (She is eating 50 to 75% of her food.Bowel protocol initiated on the . no BM since ) Skin: positive Warm, Dry and Pallor Extremities: positive Non-tender, Full ROM and Other (Left ankle and calf are tightly wrapped with Ricardo wrap. The ankle is brace enough that she cannot fully extend or plantarflex. Pain is controlled and she has not had any pain medicine since the ) Neurologic/Psychiatric: positive Oriented x3, CN's nml (2-12) and Motor nml Lab Results 06/18/25 08:02 06/18/25 08:02 Other Labs: Lab Results x24hrs 06/18/25 Range/Units 08:02 WBC 7.6 (4.8-10.8) x10^3/uL RBC 3.96 L (4.20-5.40) 10^6/uL Hgb 11.2 L (12.0-16.0) g/dL Hct 39.3 (37.0-47.0) % MCV 99.2 H (81.0-99.0) fL MCH 28.3 (27.0-31.0) pg MCHC 28.5 L (32.0-36.0) g/dL RDW 13.5 (12.0-15.0) % Plt Count 306 (130-450) 10^3/uL MPV 9.7 (7.9-10.8) fL VBG pH 7.376 (7.31-7.41) VBG pCO2 73.6 H (41-51) mmHg VBG pO2 89.1 H (25-47) mmHg VBG HCO3 43.5 H (23-28) mmol/L VBG Total CO2 45.7 H (24-29) mmol/L VBG O2 Saturation 98.0 H (60-80) % VBG Base Excess 18.1 H (-2 - +2) mmol/L Sodium 138 (135-145) mmol/L Potassium 4.5 (3.5-4.5) mmol/L Chloride 96 L (101-111) mmol/L Carbon Dioxide 38 H (21-32) mmol/L Anion Gap 4.0 L (6-13) BUN 18 (6-20) mg/dL Creatinine 0.7 (0.6-1.3) mg/dL Estimated GFR (MDRD) 80 L (>89) Glucose 117 H (74-104) mg/dL Calcium 9.7 (8.5-10.3) mg/dL Assessment/Plan Problem List (1) Respiratory failure with hypoxia: Impression: Patient presented with hypoxia. She was at her [facility] and found down for unknown length of time. EMS found her 02 sat to be 60% on room air.. She was as low as 71% on room air here in our ER. She was placed on 4 L with improvement to 97%. CTA showed no acute PE, no pneumonia, no CHF with marked chronic elevation of the right hemidiaphragm with small superimposed right pleural effusion. There was resultant subtotal collapse of the right lower lobe, as well as numerous healing left rib fractures (which patient does not recall ever having). Initial CXR said CHF but the CT reading directly contradicted that. She doesn't have a fever, chills, or elevated WBC but did have a cough and some congestion 06/14. Procalcitonin was 0.06. Patient has no underlying lung disease. She was recently prescribed albuterol inhaler as needed. Continue DuoNebs RT 4 times daily to help. Some cardiomegaly noted. proBNP slightly elevated at 682. She did have a troponinemia 76.3 which was downtrending to 66.2. No active chest pain. Echo showed pulmonary artery systolic pressure is moderately increased - she may have a component of pulmonary hypertension. Initial venous blood gas does show respiratory acidosis. Patient may have a component of undiagnosed sleep apnea or obesity hypoventilation syndrome. She is more lethargic today. Will trial CPAP/BIPAP during the day. Unfortunately, this is not a home CPAP for her. As such, we will transfer her to the ICU for this. Qualifiers: Chronicity: acute Qualified Code(s): J96.01 - Acute respiratory failure with hypoxia (2) Obtundation: Impression: Likely due to hypercarbia. Continue CPAP/BiPAP use. MRI was ordered, and it was negative. (3) Bimalleolar ankle fracture: Impression: Patient presented with mechanical fall. She says she does not remember why she fell. It has been a few days and she says that she really cannot remember what happened that day at all. Had immediate pain in her left ankle following the fall. X-ray shows bimalleolar fractures, mild disruption of the ankle mortise. Orthopedic surgery was initially planning on doing surgery inpatient, but will now likely need cardiology clearance and the surgery has to be completed as an outpatient. Once medically cleared, patient would likely go to SNF. Continue pain management with Tylenol as needed, oxycodone for moderate pain, morphine for severe pain. So far she has only had pain medicine on the first day she was here. She has not had any more sedating medication since then. Qualifiers: Encounter type: initial encounter Fracture type: closed Laterality: l eft Qualified Code(s): S82.842A - Displaced bimalleolar fracture of left lower leg, initial encounter for closed fracture (4) Urinary tract infection: Impression: UA positive, some dysuria and urinary frequency noted. Completed Rocephin course. Qualifiers: Hematuria presence: without hematuria Urinary tract infection type: a cute cystitis Qualified Code(s): N30.00 - Acute cystitis without hematuria (5) DDD (degenerative disc disease), lumbar: Impression: Continue pain management as needed. She is controlled for now as long as she is at bedrest. She received IV MS on 06/13 and two doses of Vicodin that day. None since. Qualifiers: Disc-related pain type: unspecified whether pain present Qualified Code(s): M51.369 - Other intervertebral disc degeneration, lumbar region without mention of lumbar back pain or lower extremity pain (6) Chronic kidney disease, stage 3b: Impression: Creatinine around baseline of 1.2-1.4. Avoid nephrotoxic agents at this time. Continue to trend. (7) Benign essential hypertension: Impression: Home medication continued, losartan. Previous 48 hour Systolic is 132-147. May be acutely elevated due to acute pain and shortness of breath.This morning her blood pressure was 155/77. I do not think this is high enough for me to change her medicines yet. (8) Depression: Impression: Continue duloxetine. Qualifiers: Depression Type: unspecified Qualified Code(s): F32.A - Depression, unspecified
[2025-06-18] MEDS ORDERED: IPRATROPIUM/ALBUTEROL 3 ML NEB INH PRN (11:38)
[2025-06-18] MEDS: CHOLECALCIFEROL 25 MCG TABLET PO SCH (13:12)
[2025-06-18] MEDS: ASPIRIN 300 MG SUPP PR STA (15:26)
[2025-06-18] MEDS: CALCIUM CARBONATE CHEW 500 MG TABLET PO SCH (21:12)
[2025-06-18] MEDS: ACETAMINOPHEN 325 MG TABLET PO PRN (21:12)
[2025-06-19 04:43] LABS: HCT - HEMATOCRIT 37.9 % (37.0-47.0); HGB - HEMOGLOBIN 10.5 g/dL (12.0-16.0); MEAN PLATELET VOLUME 9.8 fL (7.9-10.8); PLT - PLATELET COUNT 277.0 10^3/uL (130-450); RED CELL DISTRIBUTION WIDTH 13.5 % (12.0-15.0)
[2025-06-19 04:52] LABS: VBG PH 7.485 (7.31-7.41)
[2025-06-19 04:53] LABS: VBG BASE EXCESS 24.8 mmol/L (-2 - +2); VBG PCO2 79.5 mmHg (41-51); VBG PH 7.401 (7.31-7.41); VBG PO2 62.2 mmHg (25-47); VBG TOTAL CO2 52.3 mmol/L (24-29)
[2025-06-19 05:23] LABS: BUN - BLOOD UREA NITROGEN 18.0 mg/dL (6-20); CARBON DIOXIDE - CO2 41.0 mmol/L (21-32); CREATININE 0.7 mg/dL (0.6-1.3); GFR - MDRD 80.0 (>89)
[2025-06-19 06:28] LABS: ABG PH 7.41 (7.35-7.45)
[2025-06-19 06:29] LABS: ABG BASE EXCESS 24.9 mmol/L (-2.0-3.0); ABG HCO3 49.7 mmol/L (22.0-26.0); ABG OXYGEN SATURATION 99 % (95-98); ABG PO2 93 mmHg (83-108)
[2025-06-19 06:30] LABS: ABG FRACTION OF INSPIRED O2 35.00; ABG MODE OF VENTILATION BIPAP; ABG RESPIRATORY RATE 16 b/min
[2025-06-19 06:31] LABS: ABG PCO2 77 mmHg (34-45); ABG TCO2 52.0 mmol/L (21.0-29.0)
--- NOTE | 2025-06-19 07:58 | PROVIDER PROGRESS NOTE ---
Subjective Subjective Subjective: This morning, patient is alert and oriented x 1-2. She is more interactive today. She states that she has never formally been diagnosed with sleep apnea before nor if she ever uses CPAP machine. Her granddaughter is at bedside; she states that she is to care for her prior to her moving into an assisted living facility. She has noted a gradual decline in her functional status over the last few months, partially due to her degenerative disc disease and her increasing immobility. Jazmyne states her pain is pretty well-controlled overall. She has not been moving much, nor getting out of bed. Current Medications Current Medications Current Medications: Current Medications Generic Name Dose Route Start Last Admin Trade Name Freq PRN Reason Stop Dose Admin Acetaminophen 650 mg 06/13/25 14:53 06/18/25 21:12 Acetaminophen 325 Mg Tablet PO 650 mg Q4HR PRN Administration Pain 1 to 4, or Fever Albuterol/Ipratropium 3 ml 06/18/25 11:38 Ipratropium/Albuterol 3 Ml Neb INH RTQID PRN Dyspnea Calcium Carbonate/Glycine 500 mg 06/18/25 21:00 06/18/25 21:12 Calcium Carbonate Chew 500 Mg Tablet PO 500 mg BID SHANNON Administration Cholecalciferol 50 mcg 06/18/25 11:00 06/18/25 13:12 Cholecalciferol 25 Mcg Tablet PO Not Given DAILY SHANNON Cyanocobalamin 500 mcg 06/15/25 09:00 06/18/25 08:30 Cyanocobalamin 500 Mcg Tablet PO 500 mcg DAILY SHANNON Administration Docusate Sodium 250 - 500 mg 06/15/25 09:00 06/18/25 08:31 Docusate Sodium 250 Mg Capsule PO 250 mg DAILY SHANNON Administration Duloxetine HCl 30 mg 06/14/25 09:00 06/18/25 08:30 Duloxetine 30 Mg Capsule PO 30 mg DAILY SHANNON Administration Heparin Sodium (Porcine) 5,000 unit 06/14/25 09:00 06/18/25 21:12 Heparin 5,000 Unit/Ml Vial SUBQ 5,000 unit BID SHANNON Administration Losartan Potassium 100 mg 06/14/25 09:00 06/18/25 08:31 Losartan 50 Mg Tablet PO 100 mg DAILY SHANNON Administration Nystatin 1 applic 06/14/25 21:00 06/18/25 21:30 Nystatin Powder 15 Gm TOP 1 applic BID SHANNON Administration Ondansetron HCl 4 mg 06/13/25 14:53 Ondansetron Odt 4 Mg Tablet TL Q6HR PRN Nausea / Vomiting Ondansetron HCl 4 mg 06/13/25 14:53 Ondansetron 4 Mg/2 Ml Vial IVP Q6HR PRN Nausea / Vomiting Polyethylene Glycol 17 gm 06/15/25 09:00 06/18/25 08:32 Polyethylene Glycol 3350 17 Gm Packet PO Not Given DAILY SHANNON Multivit/Folic Acid/Iron 1 tab 06/14/25 12:00 06/18/25 08:30 Vitamin Tablet PO 1 tab DAILYWM SHANNON Administration Senna 8.6 - 17.2 mg 06/15/25 09:00 06/18/25 08:31 Senna 8.6 Mg Tablet PO 8.6 mg DAILY SHANNON Administration Sodium Chloride 10 ml 06/13/25 14:53 06/15/25 08:45 Sodium Chloride Flush 0.9% 10 Ml Syringe IVP 10 ml PRN PRN Administration NEEDED PER PROVIDER ORDERS Sodium Chloride 10 ml 06/13/25 17:00 06/19/25 01:00 Sodium Chloride Flush 0.9% 10 Ml Syringe IVP Not Given 0100,0900,1700 SHANNON Zinc Oxide 113 gm 06/14/25 11:33 Cod Liver Oil/Zinc Oxide 113 Gm Tube TOP PRN PRN Skin Care Objective Vital Signs/Intake & Output Reviewed Vital Signs: Yes Vital Signs: Vital Signs x48h Temp Pulse Pulse Resp BP Pulse Ox O2 Flow Rate 06/19/25 07:00 66 16 104/40 L 99 06/19/25 06:00 71 19 144/60 H 98 06/19/25 05:00 67 18 120/49 L 97 06/19/25 04:45 78 06/19/25 04:00 71 20 124/47 L 98 06/19/25 03:00 77 19 117/49 L 97 06/19/25 02:37 73 06/19/25 02:00 80 17 150/52 H 97 06/19/25 01:27 3 06/19/25 01:26 3 06/19/25 01:00 72 19 116/83 92 06/19/25 00:30 72 06/19/25 00:00 98.4 F 73 18 142/55 H 94 Intake & Output: Intake & Output 06/16/25 06/17/25 06/18/25 06/19/25 23:59 23:59 23:59 23:59 Intake Total 60 / 60 1400 / 1400 50 / 50 600 / 600 Output Total 300 / 300 750 / 750 600 / 600 500 / 500 Balance -240 / -240 650 / 650 -550 / -550 100 / 100 Weight (kg) 98.5 kg Objective General Appearance: positive No acute distress (5 feet 2 inch tall elderly female, 97.5 kg.) Eyes Bilateral: positive PERRL and EOMI ENT: positive No signs of dehydration Neck: positive No JVD; negative Stiff neck or Carotid bruit Respiratory: positive Chest non-tender, No respiratory distress, Breath sounds nml and Other (Slow and unlabored respiration. Shallow.) Cardiovascular: positive Regular rate & rhythm and Systolic murmur Abdomen: positive Non-tender, No organomegaly, Nml bowel sounds and Other (She is eating 50 to 75% of her food.Bowel protocol initiated on the . no BM since ) Skin: positive Warm, Dry and Pallor Extremities: positive Non-tender, Full ROM and Other (Left ankle and calf are tightly wrapped with Ricardo wrap. The ankle is brace enough that she cannot fully extend or plantarflex. Pain is controlled and she has not had any pain medicine since the ) Neurologic/Psychiatric: positive Oriented x3, CN's nml (2-12) and Motor nml Lab Results 06/19/25 04:21 06/19/25 04:21 Other Labs: Lab Results x24hrs 06/19/25 06/19/25 06/19/25 Range/Units 05:55 04:21 04:21 WBC 7.2 (4.8-10.8) x10^3/uL RBC 3.72 L (4.20-5.40) 10^6/uL Hgb 10.5 L (12.0-16.0) g/dL Hct 37.9 (37.0-47.0) % MCV 101.9 H (81.0-99.0) fL MCH 28.2 (27.0-31.0) pg MCHC 27.7 L (32.0-36.0) g/dL RDW 13.5 (12.0-15.0) % Plt Count 277 (130-450) 10^3/uL MPV 9.8 (7.9-10.8) fL Bld Gas Analysis Time 0559 Sample Site RIGHT RADIAL ABG pH 7.41 (7.35-7.45) ABG pCO2 77 H* (34-45) mmHg ABG pO2 93 (83-108) mmHg ABG HCO3 49.7 H (22.0-26.0) mmol/L ABG Total CO2 52.0 H* (21.0-29.0) mmol/L ABG O2 Saturation 99 H (95-98) % ABG Base Excess 24.9 H (-2.0-3.0) mmol/L Emre Test POSITIVE VBG pH 7.485 H 7.401 (7.31-7.41) VBG pCO2 79.5 H (41-51) mmHg VBG pO2 62.2 H (25-47) mmHg VBG HCO3 49.8 H (23-28) mmol/L VBG Total CO2 52.3 H (24-29) mmol/L VBG O2 Saturation 92.0 H (60-80) % VBG Base Excess 24.8 H (-2 - +2) mmol/L Ionized Calcium 1.24 (1.09-1.30) mmol/L Respiration Rate 16 b/min O2 Delivery Device BiPAP Vent Mode BIPAP FiO2 35.00 PEEP 7 cmH2O IPAP 14 cmH2O Sodium 138 (135-145) mmol/L Potassium 4.6 H (3.5-4.5) mmol/L Chloride 95 L (101-111) mmol/L Carbon Dioxide 41 H* (21-32) mmol/L Anion Gap 2.0 L (6-13) BUN 18 (6-20) mg/dL Creatinine 0.7 (0.6-1.3) mg/dL Estimated GFR (MDRD) 80 L (>89) Glucose 92 (74-104) mg/dL Calcium 9.9 (8.5-10.3) mg/dL Phosphorus 2.6 (2.5-5.0) mg/dL Magnesium 2.0 (1.7-2.3) mg/dL Troponin I High Sens (2.3-14.8) ng/L Nasal Screen MRSA (PCR) (NEGATIVE) 06/18/25 06/18/25 06/18/25 Range/Units 16:18 13:00 08:02 WBC 7.6 (4.8-10.8) x10^3/uL RBC 3.96 L (4.20-5.40) 10^6/uL Hgb 11.2 L (12.0-16.0) g/dL Hct 39.3 (37.0-47.0) % MCV 99.2 H (81.0-99.0) fL MCH 28.3 (27.0-31.0) pg MCHC 28.5 L (32.0-36.0) g/dL RDW 13.5 (12.0-15.0) % Plt Count 306 (130-450) 10^3/uL MPV 9.7 (7.9-10.8) fL Bld Gas Analysis Time Sample Site ABG pH (7.35-7.45) ABG pCO2 (34-45) mmHg ABG pO2 (83-108) mmHg ABG HCO3 (22.0-26.0) mmol/L ABG Total CO2 (21.0-29.0) mmol/L ABG O2 Saturation (95-98) % ABG Base Excess (-2.0-3.0) mmol/L Emre Test VBG pH 7.376 (7.31-7.41) VBG pCO2 73.6 H (41-51) mmHg VBG pO2 89.1 H (25-47) mmHg VBG HCO3 43.5 H (23-28) mmol/L VBG Total CO2 45.7 H (24-29) mmol/L VBG O2 Saturation 98.0 H (60-80) % VBG Base Excess 18.1 H (-2 - +2) mmol/L Ionized Calcium (1.09-1.30) mmol/L Respiration Rate b/min O2 Delivery Device Vent Mode FiO2 PEEP cmH2O IPAP cmH2O Sodium 138 (135-145) mmol/L Potassium 4.5 (3.5-4.5) mmol/L Chloride 96 L (101-111) mmol/L Carbon Dioxide 38 H (21-32) mmol/L Anion Gap 4.0 L (6-13) BUN 18 (6-20) mg/dL Creatinine 0.7 (0.6-1.3) mg/dL Estimated GFR (MDRD) 80 L (>89) Glucose 117 H (74-104) mg/dL Calcium 9.7 (8.5-10.3) mg/dL Phosphorus (2.5-5.0) mg/dL Magnesium (1.7-2.3) mg/dL Troponin I High Sens 18.8 H* (2.3-14.8) ng/L Nasal Screen MRSA (PCR) NEGATIVE (NEGATIVE) Assessment/Plan Problem List (1) Respiratory failure with hypoxia: Impression: Patient presented with hypoxia. She was at her [facility] and found down for unknown length of time. EMS found her 02 sat to be 60% on room air.. She was as low as 71% on room air here in our ER. She was placed on 4 L with improvement to 97%. CTA showed no acute PE, no pneumonia, no CHF with marked chronic elevation of the right hemidiaphragm with small superimposed right pleural effusion. There was resultant subtotal collapse of the right lower lobe, as well as numerous healing left rib fractures (which patient does not recall ever having). Initial CXR said CHF but the CT reading directly contradicted that. She doesn't have a fever, chills, or elevated WBC but did have a cough and some congestion 06/14. Procalcitonin was 0.06. Patient has no underlying lung disease. She was recently prescribed albuterol inhaler as needed. Continue DuoNebs RT 4 times daily to help. Some cardiomegaly noted. proBNP slightly elevated at 682. She did have a troponinemia 76.3 which has downtrended to 18. No active chest pain. Echo showed pulmonary artery systolic pressure is moderately increased - she may have a component of pulmonary hypertension. Initial venous blood gas does show respiratory acidosis. Patient may have a component of undiagnosed sleep apnea or obesity hypoventilation syndrome. Yesterday, she was transferred to the ICU for BiPAP use at night. Will try to get her sleep imaging prior to transfer to SNF. Qualifiers: Chronicity: acute Qualified Code(s): J96.01 - Acute respiratory failure with hypoxia (2) Obtundation: Impression: Likely due to hypercarbia. Continue CPAP/BiPAP use. MRI was ordered, and it was negative. (3) Bimalleolar ankle fracture: Impression: Patient presented with mechanical fall. She says she does not remember why she fell. It has been a few days and she says that she really cannot remember what happened that day at all. Had immediate pain in her left ankle following the fall. X-ray shows bimalleolar fractures, mild disruption of the ankle mortise. Orthopedic surgery was initially planning on doing surgery inpatient, but will now likely need cardiology clearance and the surgery has to be completed as an outpatient. Once medically cleared, patient would likely go to SNF. Continue pain management with Tylenol as needed, oxycodone for moderate pain, morphine for severe pain. So far she has only had pain medicine on the first day she was here. She has not had any more sedating medication since then. Qualifiers: Encounter type: initial encounter Fracture type: closed Laterality: l eft Qualified Code(s): S82.842A - Displaced bimalleolar fracture of left lower leg, initial encounter for closed fracture (4) Urinary tract infection: Impression: UA positive, some dysuria and urinary frequency noted. Completed Rocephin course. Qualifiers: Hematuria presence: without hematuria Urinary tract infection type: a cute cystitis Qualified Code(s): N30.00 - Acute cystitis without hematuria (5) DDD (degenerative disc disease), lumbar: Impression: Continue pain management as needed. She is controlled for now as long as she is at bedrest. She received IV MS on 06/13 and two doses of Vicodin that day. None since. Qualifiers: Disc-related pain type: unspecified whether pain present Qualified Code(s): M51.369 - Other intervertebral disc degeneration, lumbar region without mention of lumbar back pain or lower extremity pain (6) Chronic kidney disease, stage 3b: Impression: Creatinine around baseline of 1.2-1.4. Avoid nephrotoxic agents at this time. Continue to trend. (7) Benign essential hypertension: Impression: Home medication continued, losartan. Previous 48 hour Systolic is 132-147. May be acutely elevated due to acute pain and shortness of breath.This morning her blood pressure was 155/77. I do not think this is high enough for me to change her medicines yet. (8) Depression: Impression: Continue duloxetine. Qualifiers: Depression Type: unspecified Qualified Code(s): F32.A - Depression, unspecified
[2025-06-20 04:40] LABS: HCT - HEMATOCRIT 36.7 % (37.0-47.0); HGB - HEMOGLOBIN 10.9 g/dL (12.0-16.0); MEAN PLATELET VOLUME 11.0 fL (7.9-10.8); PLT - PLATELET COUNT 242.0 10^3/uL (130-450); RED CELL DISTRIBUTION WIDTH 13.5 % (12.0-15.0)
[2025-06-20 04:51] LABS: VBG BASE EXCESS 27.7 mmol/L (-2 - +2); VBG PCO2 65.5 mmHg (41-51); VBG PH 7.497 (7.31-7.41); VBG PO2 83.3 mmHg (25-47); VBG TOTAL CO2 53.2 mmol/L (24-29)
[2025-06-20 05:18] LABS: BUN - BLOOD UREA NITROGEN 16.0 mg/dL (6-20); CARBON DIOXIDE - CO2 41.0 mmol/L (21-32); CREATININE 0.7 mg/dL (0.6-1.3); GFR - MDRD 80.0 (>89)
--- NOTE | 2025-06-20 09:34 | Discharge Summary ---
"Discharge Summary Admit Date: 06/13/25 Discharge Date: 06/20/25 Discharging Provider: Dr. Fredrick Irving Primary Care Provider: Griselda Maria Code Status: Do Not Attempt Resuscitation Discharge Facility Name: [facility] DIAGNOSES Discharge Diagnoses with Status of Each Condition: Respiratory failure with hypoxiapatient is still requiring 2 to 3 L of oxygen on discharge. At this point, this is likely attributed to pulmonary hypertension and obesity hypoventilation syndrome. CTA was negative for PE, no signs of pneumonia or infection. Procalcitonin was negative. ECHO does not show any heart failure. She did have CO2 retention during her stay here, and required intermittent BiPAP at night. She would likely benefit from CPAP at night for undiagnosed obstructive sleep apnea/obesity hypoventilation syndrome. Obtundationresolved. Attribute it to hypercarbia. Bimalleolar ankle fracturepatient will require cardiology clearance in the outpatient setting, and then will need orthopedic surgery follow-up for this. Urinary tract infectionresolved. Completed Rocephin course. Degenerative disc diseasecontinue duloxetine, Tylenol as needed. Chronic kidney disease, stage IIIbcreatinine around baseline. Hypertensionhold home medication, losartan as patient has been hyperkalemic, as well as hypotensive while here. Depressioncontinue duloxetine. HPI History of Present Illness: Patient is a 79-year-old female with a history of hypertension, degenerative disc disease who presents after mechanical fall. She states she was turning, and tripped and fell on her left side on her ankle. She recently moved out from her grand kids house, and is living alone. She denies any dizziness, lightheadedness, palpitations, chest pain prior to the fall. In the ER, she was saturating 71% on room air. Her respiratory rate was 24. Her heart rate was 87, she was afebrile, and hypertensive. She was placed on 2 to 3 L of oxygen with improvement of her levels to 94 to 95%. Ankle x-ray showed bimalleolar fractures with mild disruption of the ankle more T's. Chest x-ray was completed, as well as a CTA which showed no PE, chronic elevation of the right hemidiaphragm with small superimposed right pleural effusion as well as subtotal collapse of the right lower lobe. No pulmonary edema was seen and she had numerous healing left rib fractures. She does not recall getting any of those rib fractures. Lab work was largely unremarkable. VBG showed some CO2 retention with a pH of 7.3 and CO2 of 65.9. Her creatinine was mildly elevated at 1.4, although her baseline is 1.2. Her calcium was slightly high at 10.4. Her troponin was elevated at 76.3, and repeat was 66.2 her BNP was elevated at 682. UA was positive for urinary tract infection. Respiratory viral panel was negative. She was admitted for acute hypoxic respiratory failure, as well as the ankle fracture. CONSULTS | PROCEDURES Consultations: Orthopedic surgery, PT, SW Procedures: Brain MRI, chest/thorax CTA, chest x-ray, ankle x-ray HOSPITAL COURSE Hospital Course: Patient is 79-year-old female with a history of degenerative disc disease who presented after mechanical fall. She was found to have a fracture of her left ankle. When she was found down, she was hypoxic down to 71% on room air. She was placed on oxygen with improvement. CTA was negative for PE echo showed pulmonary hypertension, but no valvular abnormalities or any heart failure. No signs of pneumonia or infection. During the course of her stay, she became more obtunded and lethargic. She was found to retaining CO2. She likely has undiagnosed RITO or OHS. She was trialed on BiPAP overnight with good results. She should get a sleep study done in the outpatient setting, and then get CPAP nightly. She was supposed to get a open reduction internal fixation with orthopedic surgery, however, a new murmur was heard on exam. They recommended cardiac clearance prior to the surgery. As such, plan currently is for her to go to SNF. She needs to see her PCP for cardiology referral to get this clearance, and then follow-up with orthopedic surgery for the surgery. This was explained to the patient, as well as her granddaughter. Patient was deemed stable for discharge to SNF. ALLERGIES Allergies Allergy/AdvReac Type Severity Reaction Status Date / Time lisinopril Allergy Severe Cough Verified 06/13/25 07:03 oxycodone (From Percocet) Allergy Severe Emesis Verified 06/13/25 07:03 MEDICATIONS Ambulatory Orders Medication Instructions Recorded Confirmed albuterol sulfate 90 mcg/actuation 2 puff inhalation Q ID PRN 05/05/25 06/13/25 aerosol inhaler (Ventolin HFA) shortness of breath or wheezing #8.5 grams alendronate 70 mg tablet 70 mg PO QWEEK #13 tabs 04/27 006/13/25 lidocaine 5 % topical patch 1 patch topical BID Pain # 60 ea 05/13/25 06/13/25 duloxetine 30 mg capsule,delayed 30 mg PO QDAY depress ion #30 caps 05/31/25 06/13/25 release naproxen 500 mg tablet 500 mg PO BID #60 tabs 05/3106/13/25 cholecalciferol (vitamin D3) 25 50 mcg (2 x 25 mcg (1, 000 unit)) 06/20/25 mcg (1,000 unit) tablet PO DAILY #30 tabs cyanocobalamin (vitamin B-12) 500 500 mcg PO DAILY #30 tabs 06/20/25 mcg tablet vit,calcium 27-ferrous 1 tab PO DAILYWM #30 t abs 06/20/25 fum 60 mg iron-folic acid 1 mg tablet (Trinatal Rx 1) PHYSICAL EXAM AT DISCHARGE Vital Signs: Vital Signs x48h Temp Pulse Resp BP BP Pulse Ox O2 Flow Rate 06/20/25 11:00 77 24 139/51 H 96 2 06/20/25 10:00 75 24 111/39 L 94 2 06/20/25 09:11 80 17 124/48 L 92 2 06/20/25 09:00 77 24 107/37 L 92 2 06/20/25 08:43 2 06/20/25 08:00 98.5 F 92 20 155/58 H 94 2 06/20/25 07:00 80 18 147/49 H 97 06/20/25 07:00 2 06/20/25 06:00 98.7 F 79 16 148/59 H 94 06/20/25 05:00 87 22 144/57 H 96 06/20/25 05:00 2 General Appearance: positive No acute distress (5 feet 2 inch tall elderly female, 97.5 kg.) Eyes Bilateral: positive PERRL and EOMI ENT: positive No signs of dehydration Neck: positive No JVD; negative Stiff neck or Carotid bruit Respiratory: positive Chest non-tender, No respiratory distress, Breath sounds nml and Other (Slow and unlabored respiration. Shallow.) Cardiovascular: positive Regular rate & rhythm and Systolic murmur Abdomen: positive Non-tender, No organomegaly, Nml bowel sounds and Other (She is eating 50 to 75% of her food.Bowel protocol initiated on the . no BM since ) Skin: positive Warm, Dry and Pallor Extremities: positive Non-tender, Full ROM and Other (Left ankle and calf are tightly wrapped with Ricardo wrap. The ankle is brace enough that she cannot fully extend or plantarflex. Pain is controlled and she has not had any pain medicine since the ) Neurologic/Psychiatric: positive Oriented x3, CN's nml (2-12) and Motor nml Lab Results LABS 06/20/25 04:19 06/20/25 04:19 QUALITY (Female Hip Fx Only) Was patient sent home on osteoporosis medication?: Yes FOLLOW UP Follow Up: Follow-up with PCP. Follow-up with cardiology. Follow-up with orthopedic surgery. Follow-up with sleep medicine. TIME SPENT Time Spent in Discharge (Minutes): 35 Discharge Plan Discharge Patient Disposition: [facility] DC/Xfer Prescriptions: New cholecalciferol (vitamin D3) 25 mcg (1,000 unit) Tablet 50 mcg PO DAILY Qty: 30 0RF cyanocobalamin (vitamin B-12) 500 mcg Tablet 500 mcg PO DAILY Qty: 30 0RF Trinatal Rx 1 60 mg iron-1 mg Tablet 1 tab PO DAILYWM Qty: 30 0RF Continued albuterol sulfate [Ventolin HFA] 90 mcg/actuation HFA aerosol inhaler 2 puff inhalation QID PRN (Reason: shortness of breath or wheezing) Qty: 8.5 2RF Rx Instructions: Inhale 2 puffs by mouth as needed up to four times a day lidocaine 5 % adhesive patch,medicated 1 patch topical BID MDD 2 patches Qty: 60 5RF Rx Instructions: leave on most painful area for 12 hours at a time. Can use 2 per day. duloxetine 30 mg capsule,delayed release(DR/EC) 30 mg PO QDAY Qty: 30 5RF Rx Instructions: Take 1 capsule by mouth once daily naproxen 500 mg tablet 500 mg PO BID Qty: 60 11RF Rx Instructions: Take 1 tablet by mouth twice daily alendronate 70 mg tablet 70 mg PO QWEEK Qty: 13 4RF Rx Instructions: Take 1 tablet ONCE each Week Drink on empty stomach with full glass of water, do not lie down after taking for 1 hour. Discontinued losartan 100 mg tablet 100 mg PO QDAY Qty: 90 4RF Rx Instructions: Take 1 tablet by mouth once daily Activity Restrictions: Activity as Tolerated Diet: Regular Health Concerns: You came in after a fall. You were subsequently found to have really low oxygen levels at your assisted living facility. First of all, in regards to your fall, you did break your left ankle. You will need surgery, an open reduction and internal fixation, with orthopedics in the near future. I would like you to follow-up with them in the next 1 to 2 weeks. However, they would like you to get cardiology clearance prior to the surgery. To obtain a cardiology consult, you will first need to make an appointment with your primary care provider, who will provide you with this referral. We did do an ultrasound of your heart here, an echocardiogram, and it showed pulmonary hypertension, but no evidence of heart failure or valvular disease. While you are here, you are found to be confused, lethargic and sleepy. You likely have something called obesity hypoventilation syndrome or obstructive sleep apnea, both of which need to be diagnosed via sleep study that your PCP can refer you to. For this, you required a few nights of CPAP use. There is a lot of outpatient follow-up that you need in the next few weeks. Please, please continue close follow up with all the specialists and your PCP as listed. Thank you for allowing us to take care of you. We are glad you're feeling better. Print Language: Upper Sorbian Patient Instructions: Surg Dc Stand Alone Forms: SNF Discharge, PCP List Follow-up Care: Griselda Maria ARNP [Provider Admit Priv/Credential, Family Practice] Jimmy Shelby DO [Provider Admit Priv/Credential, Orthopedics] Vitals documented within 30 minutes of discharge?: Yes"
[2025-06-20 13:27] VITALS: BP 152/67; TEMP 98.8; O2SAT 95
== END 2025-06-20 12:50 | DRG 189 ==
LOC: ED 06:41 → MS2 13:51 → ICU 06-18 13:07
PROVIDERS: ADMIT Internal Medicine; ATTEND Internal Medicine